=== PATIENT | female | born 1955 | race Caucasian/White ===

== ENCOUNTER 2016-07-25 13:28 | Emergency (ER) | payer OTHER ==
[2016-07-25] MEDS ORDERED: NS 0.9% 1000 ML* 1,000 ML IV ONE (15:40)
[2016-07-25] MEDS ORDERED: Ondansetron INJ* 2 MG/ML VIAL IV ONE ×2 (15:43→18:07)
--- NOTE | 2016-07-25 16:14 | RAD ---
HISTORY: Abdominal pain COMPARISONS: None VIEWS: Frontal supine and upright views of the abdomen. FINDINGS: BOWEL: There is a nonspecific bowel gas pattern, with nondilated small bowel gas noted. CALCULI: There are no abnormal calculi. BONES AND SOFT TISSUES: There is cortical lytic curvature of the spine. Degenerative changes are noted OTHER FINDINGS: The lung bases are clear. There is no subphrenic gas. IMPRESSION: NONSPECIFIC BOWEL GAS PATTERN. NO SUBPHRENIC GAS.
[2016-07-25 16:38] LABS: Hematocrit 42 % (35-47); Hemoglobin 14.5 g/dl (12.0-16.0); Mean Corpuscular HGB Conc 34 g/dl (31-36); Mean Corpuscular Hemoglobin 29 pg (27-31); Mean Corpuscular Volume 86 fL (80-97); Mean Platelet Volume 7 um3 (7.4-10.4); Red Blood Count 4.92 10^6/ul (4.0-5.4); Red Cell Distribution Width 13 % (10.5-15); White Blood Count 11.7 10^3/ul (3.5-10.8)
[2016-07-25 16:55] LABS: ALT 62 U/L (7-52); AST 62 U/L (13-39); Albumin 4.1 g/dL (3.2-5.2); Alkaline Phosphatase 89 U/L (34-104); Amylase 38 U/L (29-103); Anion Gap 12 mmol/L (2-11); BUN/Creatinine Ratio 35.5 (8-20); Blood Urea Nitrogen 33 mg/dL (6-24); C Reactive Protein < 1.00 mg/L (< 5.00); CO2 Carbon Dioxide 23 mmol/L (22-32); Calcium 9.6 mg/dL (8.6-10.3); Chloride 104 mmol/L (101-111); Creatine Kinase 69 U/L (10-223); EGFR African American 78.8 (>60); EGFR Non-African American 61.3 (>60); Globulin 2.9 g/dL (2-4); Glucose 100 mg/dL (70-100); Lipase 46 U/L (11.0-82.0); Potassium 3.8 mmol/L (3.5-5.0); Sodium 139 mmol/L (133-145)
[2016-07-25 18:11] LABS: Urine Bacteria Absent (Absent); Urine Bilirubin Negative (Negative); Urine Glucose Negative (Negative); Urine Nitrite Negative (Negative)
--- NOTE | 2016-07-25 18:17 | ED ---
Enzo Ochoa Janilya, scribed for Dmitry Hicks MD on 07/25/16 at 1532 . GI/ HPI - HPI Summary HPI Summary: A 61 y/o female came in to [facility] presenting w/ a gradual onset of constant nausea and vomiting starting 3 days ago. She also reports intermittent abd pain. She hasn't been able to keep anything down, so she has not eaten or drunk anything. There is also watery diarrhea. Pt reports chills, but no fever. Pt denies CP, SOB. Pt recently found out that her mother has Alzheimer's and has been stressed and been drinking. Pt has been sober for a year previously. PMHx antidepressants, anti-anxiety. - History of Current Complaint Chief Complaint: EDGeneral Time Seen by Provider: 07/25/16 15:29 Stated Complaint: FEELING DEHYDRATED Hx Obtained From: Patient Onset/Duration: Started Days Ago, Atraumatic, Still Present Timing: Constant, Lasting Days Severity: Moderate Current Severity: Moderate Pain Intensity: 0 Location of Pain: Diffuse Associated Signs and Symptoms: Positive: Nausea, Vomiting, Diarrhea, Chills, Abdominal Pain. Negative: Chest Pain Aggravating Factor(s): Nothing Alleviating Factor(s): Nothing - Allergy/Home Medications Allergies/Adverse Reactions: Allergies Allergy/AdvReac Type Severity Reaction Status Date / Time No Known Allergies Allergy Verified 07/25/16 16:25 PMH/Surg Hx/FS Hx/Imm Hx Previously Healthy: Yes EENT History: Denies: Hx Deafness Psychiatric History: Reports: Hx Anxiety, Hx Depression - Surgical History Surgery Procedure, Year, and Place: PLASTIC SURGERY FACE. Infectious Disease History: No Infectious Disease History: Denies: Traveled Outside the [place] in Last 30 Days - Family History Known Family History: Negative: Cardiac Disease, Hypertension, Diabetes - Social History Alcohol Use: None Substance Use Type: Reports: None Smoking Status (MU): Never Smoked Tobacco Review of Systems Positive: Chills. Negative: Fever Negative: Chest Pain Negative: Shortness Of Breath Positive: Abdominal Pain, Vomiting, Diarrhea, Nausea All Other Systems Reviewed And Are Negative: Yes Physical Exam - Summary Physical Exam Summary: VITAL SIGNS: Reviewed. GENERAL: Patient is a well developed and nourished female who is lying comfortable in the stretcher. Patient is not in any acute respiratory distress. HEAD AND FACE: Normocephalic and atraumatic. EYES: PERRLA, EOMI x 2, No injected conjunctiva. EARS: Hearing grossly intact. Ear canals and tympanic membranes are WNL. MOUTH: Oropharynx within normal limits. NECK: Supple, trachea is midline, no adenopathy, no JVD. CHEST: Symmetric, no tenderness at palpation LUNGS: Clear to auscultation bilaterally. No wheezing or crackles. CVS: RRR,, S1 and S2 present, no murmurs or gallops appreciated. ABDOMEN: Soft, non-tender. No signs of distention. Positive bowel sounds. No rebound no guarding, and no masses palpated. No abdominal bruit or pulsations. EXTREMITIES: FROM in all major joints, no edema, no cyanosis or clubbing. NEURO: Alert and oriented x 3. No acute neurological deficits. Speech is normal. SKIN: Dry and warm Triage Information Reviewed: Yes Vital Signs On Initial Exam: Initial Vitals Temp Pulse Resp BP Pulse Ox 98.0 F 88 17 148/83 100 07/25/16 13:32 07/25/16 13:32 07/25/16 13:32 07/25/16 13:32 07/25/16 13:32 Vital Signs Reviewed: Yes - [place] Coma Scale Coma Scale Total: 15 Diagnostics - Vital Signs Vital Signs Temp Pulse Resp BP Pulse Ox 07/25/16 15:11 100.1 F 73 16 137/74 86 07/25/16 15:05 81 94 07/25/16 15:03 137/74 07/25/16 13:32 98.0 F 88 17 148/83 100 - Laboratory Result Diagrams: 07/25/16 16:27 07/25/16 16:27 Lab Statement: Any lab studies that have been ordered have been reviewed, and results considered in the medical decision making process. - Radiology abd xray Xray Interpretation: No Acute Changes - IMPRESSION: NONSPECIFIC BOWEL GAS PATTERN. NO SUBPHRENIC GAS. Radiology Interpretation Completed By: Radiologist - EKG 1612 Cardiac Rate: NL - 64 bpm EKG Rhythm: Sinus Rhythm ST Segment: Normal - no ST elevation GIGU Course/Dx - Course Assessment/Plan: A 61 y/o female came in to [facility] presenting w/ a gradual onset of constant nausea and vomiting starting 3 days ago. She also reports intermittent abd pain. She hasn't been able to keep anything down, so she has not eaten or drunk anything. There is also watery diarrhea. Pt reports chills, but no fever. Pt denies CP, SOB. Blood work wnl except for wbc 11.7, increased LFTs, UA is contaminated. In the ED course she was given IVF and Zofran for the nausea and vomiting. Her symptoms have improved. X ray shows no obstruction. She was given a PO challenge and she had no nausea and vomiting. She will be discharged home with f/u of PMD>. I discussed all the findings and test results with the patient. Patient was instructed to return to the emergency room immediately if any of the symptoms return or worsens. They were explained the possibility of an early abdominal pathology which was not detected at this time despite the physical exam and testing. They understand and agree. Abdominal exam before discharge: Soft, NT. No signs of distention. BS present. No rebound no guarding, and no masses palpated. Patient is alert and oriented and hemodynamically stable. Patient is to follow up with primary care physician in the next 2 to 3 days. Patient agree and understands. Pt recently found out that her mother has Alzheimer's and has been stressed and been drinking. Pt has been sober for a year previously. PMHx antidepressants, anti-anxiety. abd xray IMPRESSION: NONSPECIFIC BOWEL GAS PATTERN. NO SUBPHRENIC GAS. EKG is NSR w/ 64 bpm. - Diagnoses Differential Diagnoses - Female: Gastritis, Gerd, Urinary Tract Infection, Vomiting Provider Diagnoses: Nausea & vomiting, Diarrhea Discharge - Discharge Plan Condition: Stable Disposition: HOME Prescriptions: Ondansetron ODT TAB* [Zofran 4 MG Odt TAB*] 4 mg PO Q6H PRN #10 tab.odt PRN Reason: Vomiting Patient Education Materials: Acute Nausea and Vomiting (ED), Acute Diarrhea (ED ) Referrals: Lissette Pettit MD [Primary Care Provider] - 2 Days The documentation as recorded by the Enzo olson Janilya accurately reflects the service I personally performed and the decisions made by me, Dmitry Hicks MD.
[2016-07-25 18:22] VITALS: BP 121/70
== END 2016-07-25 18:35 | disposition home or self-care (01) ==
LOC: ED 13:28
DX: R11.2 Nausea with vomiting, unspecified (principal); R19.7 Diarrhea, unspecified; E86.0 Dehydration
CPT/HCPCS: 36415; 74020; 80053; 81003; 81015; 82150; 82550; 83690; 83880; 84484; 85025; 86140; 87086; 93005; 96361; 96374; 96376; 99282; J2405

== ENCOUNTER 2016-09-22 18:24 | Inpatient (IN) | payer OTHER ==
[2016-09-22 19:11] LABS: Urine Bacteria Absent (Absent); Urine Bilirubin Negative (Negative); Urine Glucose Negative (Negative); Urine Nitrite Negative (Negative)
[2016-09-22 19:37] LABS: Benzodiazepine Urine Screen None Detected (None Detect)
[2016-09-22 19:47] LABS: Hematocrit 40 % (35-47); Hemoglobin 13.6 g/dl (12.0-16.0); Mean Corpuscular HGB Conc 34 g/dl (31-36); Mean Corpuscular Hemoglobin 30 pg (27-31); Mean Corpuscular Volume 88 fL (80-97); Mean Platelet Volume 7 um3 (7.4-10.4); Red Blood Count 4.53 10^6/ul (4.0-5.4); Red Cell Distribution Width 13 % (10.5-15); White Blood Count 8.2 10^3/ul (3.5-10.8)
[2016-09-22 20:10] LABS: ALT 17 U/L (7-52); AST 22 U/L (13-39); Albumin 4.3 g/dL (3.2-5.2); Alkaline Phosphatase 84 U/L (34-104); Anion Gap 13 mmol/L (2-11); BUN/Creatinine Ratio 18.6 (8-20); Blood Urea Nitrogen 16 mg/dL (6-24); CO2 Carbon Dioxide 20 mmol/L (22-32); Calcium 9.2 mg/dL (8.6-10.3); Chloride 104 mmol/L (101-111); EGFR African American 86.3 (>60); EGFR Non-African American 67.1 (>60); Globulin 2.7 g/dL (2-4); Glucose 91 mg/dL (70-100); Sodium 137 mmol/L (133-145)
[2016-09-22 20:31] LABS: Acetaminophen < 15 mcg/mL; Alcohol 237 mg/dL (<10); Salicylate < 2.50 mg/dL (<30)
[2016-09-22 20:34] LABS: TSH (Thyroid Stimulating Horm) 0.78 mcIU/mL (0.34-5.60)
--- NOTE | 2016-09-22 22:43 | ED ---
Yandy Ochoa Edward, scribed for Giacomo Delaney MD on 09/22/16 at 1907 . Psychiatric Complaint - HPI Summary HPI Summary: 61 y/o female brought in by police for 945 presents to ED c/o depression and EtOH abuse (unspecified amount). Patient has acute on chronic depression and daily thoughts of hurting herself. Patient states daughter recently moved away from her in pursuit of a PhD. PMHx depression and alcoholism (30+ years). Patient takes "lots of medications". - History Of Current Complaint Chief Complaint: EDMentalHealth Time Seen by Provider: 09/22/16 18:39 Hx Obtained From: Patient Onset/Duration: Gradual Onset, Still Present Timing: Constant Character: Depressed Has Suicidal: Reports: Thoughts - Constant thoughts of hurting herself - Allergies/Home Medications Allergies/Adverse Reactions: Allergies Allergy/AdvReac Type Severity Reaction Status Date / Time No Known Allergies Allergy Verified 09/22/16 19:02 PMH/Surg Hx/FS Hx/Imm Hx Previously Healthy: No Endocrine/Hematology History: Reports: Other Endocrine/Hematological Disorders - slight increased LFTS Cardiovascular History: Reports: Hx Angina, Hx Valvular Heart Disease - mitral valve prolapse Respiratory History: Reports: Hx Chronic Obstructive Pulmonary Disease (COPD) GI History: Reports: Other GI Disorders - swallowing difficulties Musculoskeletal History: Reports: Hx Back Problems, Hx Fibromyalgia, Hx Scoliosis, Other Musculoskeletal History - neuropathy in feet Sensory History: Reports: Hx Contacts or Glasses Denies: Hx Deafness Opthamlomology History: Reports: Hx Contacts or Glasses Neurological History: Reports: Other Neuro Impairments/Disorders - dizziness, head injury Psychiatric History: Reports: Hx Anxiety, Hx Depression, Hx Substance Abuse - Battling alcoholism for over 30 years - Surgical History Surgery Procedure, Year, and Place: PLASTIC SURGERY FACE, surgery for fractured skull. mass removed from breast Infectious Disease History: Denies: Traveled Outside the [place] in Last 30 Days - Family History Known Family History: Negative: Cardiac Disease, Hypertension, Diabetes - Social History Occupation: Employed Full-time - Self-employed health aide Lives: Alone Alcohol Use: Daily Hx Substance Use: No Substance Use Type: Reports: None Hx Tobacco Use: Yes Smoking Status (MU): Former Smoker Review of Systems Constitutional: Negative Eyes: Negative ENT: Negative Cardiovascular: Negative Respiratory: Negative Gastrointestinal: Negative Genitourinary: Negative Musculoskeletal: Negative Skin: Negative Neurological: Negative Psychological: Other - pos: SI Positive: Depressed All Other Systems Reviewed And Are Negative: Yes Physical Exam Triage Information Reviewed: Yes Vital Signs On Initial Exam: Initial Vitals Temp Pulse Resp BP Pulse Ox 97.1 F 101 16 134/89 94 09/22/16 18:32 09/22/16 18:32 09/22/16 18:32 09/22/16 18:32 09/22/16 18:32 Vital Signs Reviewed: Yes Appearance: Positive: Well-Appearing, No Pain Distress Skin: Positive: Warm, Skin Color Reflects Adequate Perfusion, Dry Head/Face: Positive: Normal Head/Face Inspection Eyes: Positive: Normal ENT: Positive: Normal ENT inspection Neck: Positive: Supple, Nontender Respiratory/Lung Sounds: Positive: Clear to Auscultation, Breath Sounds Present Cardiovascular: Positive: RRR Abdomen Description: Positive: Nontender, Soft Bowel Sounds: Positive: Present Musculoskeletal: Positive: Normal Neurological: Positive: Normal Psychiatric: Positive: Normal Diagnostics - Vital Signs Vital Signs Temp Pulse Resp BP Pulse Ox 09/22/16 18:32 97.1 F 101 16 134/89 94 - Laboratory Lab Results: Lab Results 09/22/16 09/22/16 09/22/16 Range/Units 19:00 19:00 19:34 WBC 8.2 (3.5-10.8) 10^3/ul RBC 4.53 (4.0-5.4) 10^6/ul Hgb 13.6 (12.0-16.0) g/dl Hct 40 (35-47) % MCV 88 (80-97) fL MCH 30 (27-31) pg MCHC 34 (31-36) g/dl RDW 13 (10.5-15) % Plt Count 262 (150-450) 10^3/ul MPV 7 L (7.4-10.4) um3 Neut % (Auto) 55.9 (38-83) % Lymph % (Auto) 35.7 (25-47) % [place] % (Auto) 6.9 (1-9) % Eos % (Auto) 0.6 (0-6) % Baso % (Auto) 0.9 (0-2) % Absolute Neuts (auto) 4.6 (1.5-7.7) 10^3/ul Absolute Lymphs (auto) 2.9 (1.0-4.8) 10^3/ul Absolute Monos (auto) 0.6 (0-0.8) 10^3/ul Absolute Eos (auto) 0 (0-0.6) 10^3/ul Absolute Basos (auto) 0.1 (0-0.2) 10^3/ul Absolute Nucleated RBC 0.01 10^3/ul Nucleated RBC % 0.1 Sodium (133-145) mmol/L Potassium (3.5-5.0) mmol/L Chloride (101-111) mmol/L Carbon Dioxide (22-32) mmol/L Anion Gap (2-11) mmol/L BUN (6-24) mg/dL Creatinine (0.51-0.95) mg/dL Est GFR ( Amer) (>60) Est GFR (Non-Af Amer) (>60) BUN/Creatinine Ratio (8-20) Glucose (70-100) mg/dL Calcium (8.6-10.3) mg/dL Total Bilirubin (0.2-1.0) mg/dL AST (13-39) U/L ALT (7-52) U/L Alkaline Phosphatase (34-104) U/L Total Protein (6.4-8.9) g/dL Albumin (3.2-5.2) g/dL Globulin (2-4) g/dL Albumin/Globulin Ratio (1-3) TSH (0.34-5.60) mcIU/mL Urine Color Straw Urine Appearance Clear Urine pH 5.0 (5-9) Ur Specific [place] 1.005 L (1.010-1.030) Urine Protein Negative (Negative) Urine Ketones Negative (Negative) Urine Blood Negative (Negative) Urine Nitrate Negative (Negative) Urine Bilirubin Negative (Negative) Urine Urobilinogen Negative (Negative) Ur Leukocyte Esterase Trace H (Negative) Urine WBC (Auto) Trace(0-5/hpf) (Absent) Urine RBC (Auto) Absent (Absent) Ur Squamous Epith Cells Present H (Absent) Urine Bacteria Absent (Absent) Urine Glucose Negative (Negative) Salicylates (<30) mg/dL Urine Opiates Screen None detected (None Detect) Acetaminophen mcg/mL Ur Barbiturates Screen None detected (None Detect) Ur Phencyclidine Scrn None detected (None Detect) Ur Amphetamines Screen None detected (None Detect) U Benzodiazepines Scrn None detected (None Detect) Urine Cocaine Screen None detected (None Detect) U Cannabinoids Screen None detected (None Detect) Serum Alcohol (<10) mg/dL 09/22/16 Range/Units 19:34 WBC (3.5-10.8) 10^3/ul RBC (4.0-5.4) 10^6/ul Hgb (12.0-16.0) g/dl Hct (35-47) % MCV (80-97) fL MCH (27-31) pg MCHC (31-36) g/dl RDW (10.5-15) % Plt Count (150-450) 10^3/ul MPV (7.4-10.4) um3 Neut % (Auto) (38-83) % Lymph % (Auto) (25-47) % [place] % (Auto) (1-9) % Eos % (Auto) (0-6) % Baso % (Auto) (0-2) % Absolute Neuts (auto) (1.5-7.7) 10^3/ul Absolute Lymphs (auto) (1.0-4.8) 10^3/ul Absolute Monos (auto) (0-0.8) 10^3/ul Absolute Eos (auto) (0-0.6) 10^3/ul Absolute Basos (auto) (0-0.2) 10^3/ul Absolute Nucleated RBC 10^3/ul Nucleated RBC % Sodium 137 (133-145) mmol/L Potassium 3.0 L (3.5-5.0) mmol/L Chloride 104 (101-111) mmol/L Carbon Dioxide 20 L (22-32) mmol/L Anion Gap 13 H (2-11) mmol/L BUN 16 (6-24) mg/dL Creatinine 0.86 (0.51-0.95) mg/dL Est GFR ( Amer) 86.3 (>60) Est GFR (Non-Af Amer) 67.1 (>60) BUN/Creatinine Ratio 18.6 (8-20) Glucose 91 (70-100) mg/dL Calcium 9.2 (8.6-10.3) mg/dL Total Bilirubin 0.60 (0.2-1.0) mg/dL AST 22 (13-39) U/L ALT 17 (7-52) U/L Alkaline Phosphatase 84 (34-104) U/L Total Protein 7.0 (6.4-8.9) g/dL Albumin 4.3 (3.2-5.2) g/dL Globulin 2.7 (2-4) g/dL Albumin/Globulin Ratio 1.6 (1-3) TSH 0.78 (0.34-5.60) mcIU/mL Urine Color Urine Appearance Urine pH (5-9) Ur Specific [place] (1.010-1.030) Urine Protein (Negative) Urine Ketones (Negative) Urine Blood (Negative) Urine Nitrate (Negative) Urine Bilirubin (Negative) Urine Urobilinogen (Negative) Ur Leukocyte Esterase (Negative) Urine WBC (Auto) (Absent) Urine RBC (Auto) (Absent) Ur Squamous Epith Cells (Absent) Urine Bacteria (Absent) Urine Glucose (Negative) Salicylates < 2.50 (<30) mg/dL Urine Opiates Screen (None Detect) Acetaminophen < 15 mcg/mL Ur Barbiturates Screen (None Detect) Ur Phencyclidine Scrn (None Detect) Ur Amphetamines Screen (None Detect) U Benzodiazepines Scrn (None Detect) Urine Cocaine Screen (None Detect) U Cannabinoids Screen (None Detect) Serum Alcohol 237 H (<10) mg/dL Result Diagrams: 09/22/16 19:34 09/22/16 19:34 Lab Statement: Any lab studies that have been ordered have been reviewed, and results considered in the medical decision making process. Course/Dx - Course Course Of Treatment: Ronel Chen was drinking tonight and came in to the ED saying she wanted to kill herself. She is sobering up now and awaiting a MHE. - Differential Dx/Clinical Impression Provider Diagnosis: Alcohol intoxication, Depression - Physician Notifications Discussed Care Of Patient With: Dr. Atkinson Discharge - Discharge Plan Condition: Stable Disposition: OTHER Discharge Disposition Comment: change of shift Referrals: Lissette Pettit MD [Primary Care Provider] - The documentation as recorded by the Yandy olson Edward accurately reflects the service I personally performed and the decisions made by me, Giacomo Delaney MD.
[2016-09-23] MEDS ORDERED: Acetaminophen TAB* 325 MG PO PRN (05:59)
[2016-09-23] MEDS ORDERED: Al Hydrox/Mg Hydrox/Simet LIQ* 30 ML UDC PO PRN (05:59)
[2016-09-23] MEDS ORDERED: chlorproMAZINE TAB* 50 MG Q6H PRN AGITATION PO (05:59)
[2016-09-23] MEDS ORDERED: Pantoprazole TAB (NF) 20 MG TAB PO SCH (09:00)
[2016-09-23] MEDS ORDERED: Pantoprazole TAB (NF) 40 MG TAB PO SCH (09:00)
[2016-09-23] MEDS: Gabapentin CAP(*) 300 MG PO SCH ×3 (11:46→20:04)
[2016-09-23] MEDS: Vitamin THERAPEUTIC TAB PO SCH (11:46)
[2016-09-23] MEDS: lamoTRIgine TAB(*) 100 MG PO SCH (11:46)
[2016-09-23] MEDS: hydrOXYzine HCL TAB* 50 MG PO SCH ×2 (11:47→20:05)
[2016-09-23] MEDS: BuPROPion XL* 300 MG TAB.XL PO SCH (12:28)
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
[2016-09-23] MEDS ORDERED: PTO: Pantoprazole TAB (NF) 20 MG TAB PO SCH (18:23)
[2016-09-23] MEDS: traZODone TAB* 50 MG TAB PO SCH (20:05)
[2016-09-23] MEDS: Topiramate TAB(*) 100 MG PO SCH (20:05)
[2016-09-23] MEDS: Diphenoxylat/Atrop 2.5-0.025M* 1 TAB PO PRN (20:06)
[2016-09-23] MEDS: PTO: Pantoprazole TAB (NF) 20 MG TAB PO SCH (20:06)
[2016-09-23] MEDS ORDERED: Topiramate TAB(*) 100 MG PO SCH (21:00)
[2016-09-23] MEDS ORDERED: Potassium Chlor TAB* 10 MEQ TAB.ER PO ONE (21:04)
[2016-09-24 07:51] LABS: BUN/Creatinine Ratio 33.7 (8-20); EGFR African American 89.9 (>60); EGFR Non-African American 69.9 (>60); Potassium 3.7 mmol/L (3.5-5.0)
[2016-09-24] MEDS: Vitamin THERAPEUTIC TAB PO SCH (09:00)
[2016-09-24] MEDS: lamoTRIgine TAB(*) 100 MG PO SCH (09:00)
[2016-09-24] MEDS: hydrOXYzine HCL TAB* 50 MG PO SCH ×2 (09:00→20:18)
[2016-09-24] MEDS: BuPROPion XL* 300 MG TAB.XL PO SCH (09:01)
[2016-09-24] MEDS: Gabapentin CAP(*) 300 MG PO SCH ×3 (09:01→20:18)
[2016-09-24] MEDS: PTO: Pantoprazole TAB (NF) 20 MG TAB PO SCH ×3 (09:02→20:20)
[2016-09-24] MEDS: Diphenoxylat/Atrop 2.5-0.025M* 1 TAB PO PRN (09:05)
--- NOTE | 2016-09-24 13:06 | PN ---
MHU: Group Therapy Note - Service Type Service Type: [id number] Group Psychotherapy - Cognitive Behavioral Group Therapy ( CBT):Patient was attentive and participatory in CBT programming this morning, and remained in good behavioral control. Patient expressed positive insights regarding relevant treatment interventions and goals.
--- NOTE | 2016-09-24 13:42 | PN ---
Subjective - Subjective Service Type: 66842 Hosp care 15 min low complexity Subjective: Patient reports her mood as "depressed". She is calm cooperative and engaged in the interview. Patient noted to have attended all groups since admission and has been visible but isolative in the milieu. Patient initiates the interview discussing what she journaled last night. Patient reports over the last 5 years being aware of 2 other distinct personalities that at times overwhelm her own. She describes a young woman who she reports as "fearless", "strong", "defiant", but also "self- destructive". Patient stated, this personality when in control have "vast gifts". Patient describes another distinct personality which she describes is a "child", who is "terrified". She reports behaviors of this personality are primarily being balling up, "huddled" for days in a row, mute. Patient's affect noted to be full and expressive. She denies SI/HI and AH/VH. She reports feeling safe here on the unit. Patient is open to inpatient rehab for alcohol as alcohol has played a role in most of her episodes of SI, and her suicide attempts. Objective - Appearance Appearance: Thin Framed Dysmorphic Features: No Hygiene: Normal Grooming: Well Kept - Behavior Psychomotor Activities: Normal Exhibits Abnormal Movement: Yes - Attitude and Relatedness Attitude and Relatedness: Cooperative Eye Contact: Good - Speech Quality: Unpressured Latencies: Normal Quantity: Appropriate - Mood Patient's Decription of Mood: "depressed" - Affect Observed Affect: Good - Thought Process Patient's Thought Process: Coherent Thought Content: No Passive Wish, No Suicidal Planning, No Homicidal Ideation, No Paranoid Ideation - Sensorium Experiencing Hallucinations: No, Sensorium is Clear Type of Hallucinations: Visual: No, Auditory: No, Command: No - Level of Consciousness Level of Consciousness: Alert Orientation: Yes Intact, Yes Orientated to Time, Yes Orientated to Place, Yes Orientated to Person - Impulse Control Impulse Control: Intact - Insight and Judgement Insight and Judgement: Fair - Group Participation Particating in Group Activities: Yes - Medication Management Medication Management Adherence: Yes Assessment - Assessment Merits Inpatient Hospitalization: For Immediate Safety, For Stabilization Inpatient DSM-IV Dx: 1. Bipolar 2 d/o, MRE depressed. 2. Unspecified PD, B traits. 3. Alcohol use d/o, severe. 4. PTSD by history Clinical Impression: 61yo female with recent stressor of not being able to see daughter before she leaves the country has triggered episode of worsening depressive symptoms associated with SI, no plan. Patient has re-focused on hx of poor relations with her children and the period of time she lost custody of them. Patient has relapsed on alcohol after a period of sobriety. She had been med and MH appt compliant. She is amenable to med modification and open to inpatient alcohol rehab once stabilized. Plan - Plan Treatment Plan: Name: DORINDA NOE Birthdate: 1955 [id number] PLAN: ------ 1. Continue admission to [facility] for safety and symptom mx. 2. Potassium re-check - wnl. 3. Hep C - NEG 4. Continue Lomotil PRN for reported recent diarrhea. 5. Patient gives informed consent to start Prozac 20mg po qhs for mood. 6. MMPI ordered. 7. Patient requests pelvic exam as its due and out of concern for recent abd pain/distention. 8. Continue Wellbutrin XL 300mg po qam for depressive symptoms. 9. Continue Lamictal 200mg po daily for mood stabilization. 10. Continue Gabapentin 600mg po TID for anxiety. 11. Continue Topamax 100mg po daily for alcohol cravings / mood stabilization. 12. Continue Vistaril 50mg po BID for anxiety. 13. Continue Trazodone 50mg po qhs for insomnia. 14. Continue compiling collateral information from family, [facility]), PCP( Dr.Catherine Pettit), and inpatient records from most most recent psychiatric hospitalization([facility]) 15. Patient to participate in milieu activities and groups. Medications: Current Medications Acetaminophen (Tylenol Tab*) 650 mg PO Q4H PRN PRN Reason: PAIN or TEMP > 101 F Al Hydrox/Mg Hydrox/Simethicone (Maalox Plus*) 30 ml PO Q4H PRN PRN Reason: INDIGESTION Bupropion HCl (Bupropion Xl*) 300 mg PO DAILY [facility] Last Admin: 09/24/16 09:01 Dose: 300 mg Chlorpromazine HCl (Thorazine Tab*) 50 mg PO Q6H PRN PRN Reason: AGITATION Diphenhydramine HCl (Benadryl Po*) 50 mg PO Q6H PRN PRN Reason: AGITATION/INSOMNIA Diphenoxylate HCl/Atropine (Lomotil Tab*) 1 tab PO BID PRN PRN Reason: DIARRHEA Last Admin: 09/24/16 09:05 Dose: 1 tab Gabapentin (Neurontin Cap(*)) 600 mg PO TID [facility] Last Admin: 09/24/16 09:01 Dose: 600 mg Hydroxyzine HCl (Atarax Tab*) 50 mg PO BID [facility] Last Admin: 09/24/16 09:00 Dose: 50 mg Lamotrigine (Lamictal Tab(*)) 200 mg PO DAILY [facility] Last Admin: 09/24/16 09:00 Dose: 200 mg Multivitamins (Theragran Tab*) 1 tab PO DAILY [facility] Last Admin: 09/24/16 09:00 Dose: 1 tab Naproxen (Naprosyn Tab*) 500 mg PO BEDTIME PRN PRN Reason: PAIN Pantoprazole Sodium (Protonix Tab (Nf)) 20 mg PO 0900,2100 [facility] Last Admin: 09/24/16 09:12 Dose: 20 mg Topiramate (Topamax(*)) 100 mg PO 2099 [facility] Last Admin: 09/23/16 20:05 Dose: 100 mg Trazodone HCl (Desyrel Tab*) 50 mg PO BEDTIME [facility] Last Admin: 09/23/16 20:05 Dose: 50 mg - Discharge Plan Discharge Plan: Drug/Alcohol Rehab Outpatient Program: [facility]
[2016-09-24] MEDS: traZODone TAB* 50 MG TAB PO SCH (20:18)
[2016-09-24] MEDS: Topiramate TAB(*) 100 MG PO SCH (20:18)
[2016-09-25] MEDS: PTO: Pantoprazole TAB (NF) 20 MG TAB PO SCH ×2 (08:40→20:18)
[2016-09-25] MEDS: lamoTRIgine TAB(*) 100 MG PO SCH (08:41)
[2016-09-25] MEDS: BuPROPion XL* 300 MG TAB.XL PO SCH (08:42)
[2016-09-25] MEDS: hydrOXYzine HCL TAB* 50 MG PO SCH ×2 (08:42→20:18)
[2016-09-25] MEDS: FLUoxetine CAP* 20 MG PO SCH (08:42)
[2016-09-25] MEDS: Vitamin THERAPEUTIC TAB PO SCH (08:42)
[2016-09-25] MEDS: Gabapentin CAP(*) 300 MG PO SCH ×3 (08:42→20:18)
--- NOTE | 2016-09-25 19:19 | PN ---
Subjective - Subjective Service Type: 24219 Hosp care 15 min low complexity Subjective: Patient visible in the milieu, noted to be more social with peers and noted to be engaged, participating well in groups. Patient is bright in affect through interview. She reports boost in mood and attributes it to learning from groups, feeling more motivated, and feeling safe here on the unit. Patient reporting increased insight into her need to be sober. Patient reports she is experiencing alcohol cravings currently. Naltrexone and Vivitrol discussed. Patient will consider these over the weekend. Patient reports no med s/e's. She denies SI/HI and AH/VH. She is thankful for staff's therapeutic listening. Objective - Appearance Appearance: Thin Framed Dysmorphic Features: No Hygiene: Normal Grooming: Well Kept - Behavior Psychomotor Activities: Normal Exhibits Abnormal Movement: No - Attitude and Relatedness Attitude and Relatedness: Cooperative Eye Contact: Good - Speech Quality: Unpressured Latencies: Normal Quantity: Appropriate - Mood Patient's Decription of Mood: "Good" - Affect Observed Affect: Good Affect Consistent with: Euthymia - Thought Process Patient's Thought Process: Coherent Thought Content: No Passive Wish, No Suicidal Planning, No Homicidal Ideation, No Paranoid Ideation - Sensorium Experiencing Hallucinations: No, Sensorium is Clear Type of Hallucinations: Visual: No, Auditory: No, Command: No - Level of Consciousness Level of Consciousness: Alert Orientation: Yes Intact, Yes Orientated to Time, Yes Orientated to Place, Yes Orientated to Person - Impulse Control Impulse Control: Intact - Insight and Judgement Insight and Judgement: Fair - Group Participation Particating in Group Activities: Yes - Medication Management Medication Management Adherence: Yes Assessment - Assessment Inpatient DSM-IV Dx: 1. Bipolar 2 d/o, MRE depressed. 2. Unspecified PD, B traits. 3. Alcohol use d/o, severe. 4. PTSD by history Clinical Impression: 61yo female with recent stressor of not being able to see daughter before she leaves the country has triggered episode of worsening depressive symptoms associated with SI, no plan. Patient has re-focused on hx of poor relations with her children and the period of time she lost custody of them. Patient has relapsed on alcohol after a period of sobriety. She had been med and MH appt compliant. She is amenable to med modification and open to inpatient alcohol rehab once stabilized. Plan - Plan Treatment Plan: Name: DORINDA NOE Birthdate: 1955 [id number] PLAN: ------ 1. Continue admission to [facility] for safety and symptom mx. 2. Hospitalist consulted for patient reported hemoptysis. Patient does report recent ENT eval. 3. Hep C - NEG 4. Patient reports [facility] appt on Wednesday, will attempt to transport patient there and back for spinal injections appt. 5. Patient reporting current alcohol cravings. Naltrexone and Vivitrol discussed. Patient reports she will consider over this weekend. 6. MMPI ordered. 7. Patient pelvic exam to be done as an outpt. 8. Continue Wellbutrin XL 300mg po qam and Prozac 20mg po qhs for depressive symptoms. 9. Continue Lamictal 200mg po daily for mood stabilization. 10. Continue Gabapentin 600mg po TID for anxiety. 11. Continue Topamax 100mg po daily for alcohol cravings / mood stabilization. 12. Continue Vistaril 50mg po BID for anxiety. 13. Continue Trazodone 50mg po qhs for insomnia. 14. Continue compiling collateral information from family, [facility]), PCP( Dr.Catherine Pettit), and inpatient records from most most recent psychiatric hospitalization([facility]) 15. Patient to participate in milieu activities and groups. Medications: Current Medications Acetaminophen (Tylenol Tab*) 650 mg PO Q4H PRN PRN Reason: PAIN or TEMP > 101 F Al Hydrox/Mg Hydrox/Simethicone (Maalox Plus*) 30 ml PO Q4H PRN PRN Reason: INDIGESTION Bupropion HCl (Bupropion Xl*) 300 mg PO DAILY REPLACED BY [facility] Last Admin: 09/25/16 08:42 Dose: 300 mg Chlorpromazine HCl (Thorazine Tab*) 50 mg PO Q6H PRN PRN Reason: AGITATION Diphenhydramine HCl (Benadryl Po*) 50 mg PO Q6H PRN PRN Reason: AGITATION/INSOMNIA Diphenoxylate HCl/Atropine (Lomotil Tab*) 1 tab PO BID PRN PRN Reason: DIARRHEA Last Admin: 09/24/16 09:05 Dose: 1 tab Fluoxetine HCl (Prozac Cap*) 20 mg PO DAILY REPLACED BY [facility] Last Admin: 09/25/16 08:42 Dose: 20 mg Gabapentin (Neurontin Cap(*)) 600 mg PO TID REPLACED BY [facility] Last Admin: 09/25/16 13:27 Dose: 600 mg Hydroxyzine HCl (Atarax Tab*) 50 mg PO BID REPLACED BY [facility] Last Admin: 09/25/16 08:42 Dose: 50 mg Lamotrigine (Lamictal Tab(*)) 200 mg PO DAILY REPLACED BY [facility] Last Admin: 09/25/16 08:41 Dose: 200 mg Multivitamins (Theragran Tab*) 1 tab PO DAILY REPL[facility] BY [facility] Last Admin: 09/25/16 08:42 Dose: 1 tab Naproxen (Naprosyn Tab*) 500 mg PO BEDTIME PRN PRN Reason: PAIN Pantoprazole Sodium (Protonix Tab (Nf)) 20 mg PO 0900,2100 REPLACED BY [facility] Last Admin: 09/25/16 08:40 Dose: 20 mg Topiramate (Topamax(*)) 100 mg PO 2100 REPLACED BY [facility] Last Admin: 09/24/16 20:18 Dose: 100 mg Trazodone HCl (Desyrel Tab*) 50 mg PO BEDTIME REPLACED BY [facility] Last Admin: 09/24/16 20:18 Dose: 50 mg - Discharge Plan Discharge Plan: Drug/Alcohol Rehab Outpatient Program: [facility]
[2016-09-25] MEDS: Topiramate TAB(*) 100 MG PO SCH (20:19)
[2016-09-25] MEDS: traZODone TAB* 50 MG TAB PO SCH (20:19)
[2016-09-25] MEDS: Naproxen TAB* 250 MG PO PRN (20:21)
[2016-09-26] MEDS: Gabapentin CAP(*) 300 MG PO SCH ×3 (08:32→20:09)
[2016-09-26] MEDS: BuPROPion XL* 300 MG TAB.XL PO SCH (08:32)
[2016-09-26] MEDS: FLUoxetine CAP* 20 MG PO SCH (08:33)
[2016-09-26] MEDS: lamoTRIgine TAB(*) 100 MG PO SCH (08:33)
[2016-09-26] MEDS: hydrOXYzine HCL TAB* 50 MG PO SCH ×2 (08:33→20:10)
[2016-09-26] MEDS: Vitamin THERAPEUTIC TAB PO SCH (08:33)
[2016-09-26] MEDS: PTO: Pantoprazole TAB (NF) 20 MG TAB PO SCH ×2 (08:34→20:08)
[2016-09-26] MEDS: Topiramate TAB(*) 100 MG PO SCH (20:09)
[2016-09-26] MEDS: traZODone TAB* 50 MG TAB PO SCH (20:09)
[2016-09-26] MEDS: Naproxen TAB* 250 MG PO PRN (20:10)
[2016-09-27] MEDS: hydrOXYzine HCL TAB* 50 MG PO SCH ×2 (08:32→20:04)
[2016-09-27] MEDS: Vitamin THERAPEUTIC TAB PO SCH (08:32)
[2016-09-27] MEDS: BuPROPion XL* 300 MG TAB.XL PO SCH (08:32)
[2016-09-27] MEDS: Gabapentin CAP(*) 300 MG PO SCH ×3 (08:33→20:04)
[2016-09-27] MEDS: lamoTRIgine TAB(*) 100 MG PO SCH (08:33)
[2016-09-27] MEDS: FLUoxetine CAP* 20 MG PO SCH (08:34)
[2016-09-27] MEDS: PTO: Pantoprazole TAB (NF) 20 MG TAB PO SCH ×2 (08:34→20:03)
--- NOTE | 2016-09-27 11:14 | PN ---
Subjective - Subjective Service Type: 50690 Hosp care 15 min low complexity Subjective: Ronel is seen for weekend coverage and is calm, polite and cooperative with my interview. She indicates that she has resolved to seek inpatient substance abuse rehab for her addiction to alcohol. Her biggest concern at this time is her fear that she may lose her [facility] at [facility]. She denies SI "As long as I'm in here." She is tolerating her medications well and seeks privileges on the unit. Objective - Appearance Appearance: Well Developed/Nourished Dysmorphic Features: No Hygiene: Normal Grooming: Well Kept - Behavior Psychomotor Activities: Normal Exhibits Abnormal Movement: No - Attitude and Relatedness Attitude and Relatedness: Cooperative Eye Contact: Good - Speech Quality: Unpressured Latencies: Normal Quantity: Appropriate - Mood Patient's Decription of Mood: "Good" - Affect Observed Affect: Good Affect Consistent with: Euthymia - Thought Process Patient's Thought Process: Coherent Thought Content: No Passive Wish, No Suicidal Planning, No Homicidal Ideation, No Paranoid Ideation - Sensorium Experiencing Hallucinations: No, Sensorium is Clear Type of Hallucinations: Visual: No, Auditory: No, Command: No - Level of Consciousness Level of Consciousness: Alert Orientation: Yes Intact, Yes Orientated to Time, Yes Orientated to Place, Yes Orientated to Person - Impulse Control Impulse Control: Tenuous - Insight and Judgement Insight and Judgement: Fair - Group Participation Particating in Group Activities: Yes - Medication Management Medication Management Adherence: Yes Assessment - Assessment Merits Inpatient Hospitalization: For Immediate Safety, For Stabilization Inpatient DSM-IV Dx: 1. Bipolar 2 d/o, MRE depressed. 2. Unspecified PD, B traits. 3. Alcohol use d/o, severe. 4. PTSD by history Clinical Impression: 61 y.o. female with a history of affective problems and alcohol abuse who presented to the ED voluntarily seeking admission for worsening depressed mood and passive SI. Plan - Plan Treatment Plan: Name: RONEL NOE Birthdate: 1955 [id number] The patient is tolerating the introduction of fluoxetine well and mood appears to be re-regulating itself here on the unit. She is pending referral to an inpatient substance abuse rehab and is agreeable to this. Continue to treat as an inpatient. Continued Medication Management: Start Medication Medications: Current Medications Acetaminophen (Tylenol Tab*) 650 mg PO Q4H PRN PRN Reason: PAIN or TEMP > 101 F Al Hydrox/Mg Hydrox/Simethicone (Maalox Plus*) 30 ml PO Q4H PRN PRN Reason: INDIGESTION Bupropion HCl (Bupropion Xl*) 300 mg PO DAILY [facility] Last Admin: 09/27/16 08:32 Dose: 300 mg Chlorpromazine HCl (Thorazine Tab*) 50 mg PO Q6H PRN PRN Reason: AGITATION Diphenhydramine HCl (Benadryl Po*) 50 mg PO Q6H PRN PRN Reason: AGITATION/INSOMNIA Diphenoxylate HCl/Atropine (Lomotil Tab*) 1 tab PO BID PRN PRN Reason: DIARRHEA Last Admin: 09/24/16 09:05 Dose: 1 tab Fluoxetine HCl (Prozac Cap*) 20 mg PO DAILY [facility] Last Admin: 09/27/16 08:34 Dose: 20 mg Gabapentin (Neurontin Cap(*)) 600 mg PO TID [facility] Last Admin: 09/27/16 08:33 Dose: 600 mg Hydroxyzine HCl (Atarax Tab*) 50 mg PO BID [facility] Last Admin: 09/27/16 08:32 Dose: 50 mg Lamotrigine (Lamictal Tab(*)) 200 mg PO DAILY [facility] Last Admin: 09/27/16 08:33 Dose: 200 mg Multivitamins (Theragran Tab*) 1 tab PO DAILY [facility] Last Admin: 09/27/16 08:32 Dose: 1 tab Naproxen (Naprosyn Tab*) 500 mg PO BEDTIME PRN PRN Reason: PAIN Last Admin: 09/26/16 20:10 Dose: 500 mg Pantoprazole Sodium (Protonix Tab (Nf)) 20 mg PO 0900,2100 [facility] Last Admin: 09/27/16 08:34 Dose: 20 mg Topiramate (Topamax(*)) 100 mg PO 2100 [facility] Last Admin: 09/26/16 20:09 Dose: 100 mg Trazodone HCl (Desyrel Tab*) 50 mg PO BEDTIME [facility] Last Admin: 09/26/16 20:09 Dose: 50 mg - Discharge Plan Discharge Plan: Inpatient Hospitalization
[2016-09-27] MEDS: traZODone TAB* 50 MG TAB PO SCH (20:04)
[2016-09-27] MEDS: Topiramate TAB(*) 100 MG PO SCH (20:04)
[2016-09-27] MEDS: Naproxen TAB* 250 MG PO PRN (20:05)
[2016-09-28] MEDS: PTO: Pantoprazole TAB (NF) 20 MG TAB PO SCH ×2 (09:02→20:37)
[2016-09-28] MEDS: BuPROPion XL* 300 MG TAB.XL PO SCH (09:02)
[2016-09-28] MEDS: hydrOXYzine HCL TAB* 50 MG PO SCH ×2 (09:20→20:11)
[2016-09-28] MEDS: lamoTRIgine TAB(*) 100 MG PO SCH (09:20)
[2016-09-28] MEDS: FLUoxetine CAP* 20 MG PO SCH (09:20)
[2016-09-28] MEDS: Gabapentin CAP(*) 300 MG PO SCH ×3 (09:22→20:10)
[2016-09-28] MEDS: Vitamin THERAPEUTIC TAB PO SCH (09:23)
--- NOTE | 2016-09-28 13:04 | PN ---
MHU: Group Therapy Note - Service Type Service Type: [id number] Group Psychotherapy - Cognitive Behavioral Group Therapy ( CBT):Patient was attentive and participatory in CBT programming this morning, and remained in good behavioral control. Patient expressed positive insights regarding relevant treatment interventions and goals.
--- NOTE | 2016-09-28 18:59 | PN ---
Subjective - Subjective Service Type: 32405 Hosp care 15 min low complexity Subjective: Patient reports ongoing benefit from her admission. Patient noted to contribute to groups. Patient noted to continue working on therapy reading/journaling in her room. Patient visible in the milieu, social with peers and cooperative with staff. Patient reports ongoing plan to be admitted to an inpatient substance abuse treatment program([facility]), but reports desire to spend time at home before being admitted. Patient educated on staff's concerns with potential relapse while at home. Patient informed of her residential program's 3 strikes rule in regard to policy violations. Patient has relapsed twice since moving to the residence. Patient is in jeopardy of losing her housing with another relapse. Patient informed she has been referred to multiple [facility] programs by SW. She reports bad experiences with some programs in the past and is concerned with hospital policy to [facility]. Patient reports her mood as "leveled off". She has been med compliant and denies med s/e's. She reports good sleep and appetite. She reports decreasing alcohol cravings and is still considering initiation of Naltrexone/Vivitrol. Patient denies SI/ HI and AH/VH. Objective - Appearance Appearance: Well Developed/Nourished Dysmorphic Features: Yes Hygiene: Normal Grooming: Well Kept - Behavior Psychomotor Activities: Normal Exhibits Abnormal Movement: Yes - Attitude and Relatedness Attitude and Relatedness: Cooperative Eye Contact: Good - Speech Quality: Unpressured Latencies: Normal Quantity: Appropriate - Mood Patient's Decription of Mood: "Good" - Affect Observed Affect: Good Affect Consistent with: Euthymia - Thought Process Patient's Thought Process: Coherent Thought Content: No Passive Wish, No Suicidal Planning, No Homicidal Ideation, No Paranoid Ideation - Sensorium Experiencing Hallucinations: No, Sensorium is Clear Type of Hallucinations: Visual: No, Auditory: No, Command: No - Level of Consciousness Level of Consciousness: Alert Orientation: Yes Intact, Yes Orientated to Time, Yes Orientated to Place, Yes Orientated to Person - Impulse Control Impulse Control: Intact - Insight and Judgement Insight and Judgement: Good - Group Participation Particating in Group Activities: Yes - Medication Management Medication Management Adherence: Yes Assessment - Assessment Merits Inpatient Hospitalization: For Immediate Safety, For Stabilization Inpatient DSM-IV Dx: 1. Bipolar 2 d/o, MRE depressed. 2. Unspecified PD, B traits. 3. Alcohol use d/o, severe. 4. PTSD by history Clinical Impression: 61yo female with recent stressor of not being able to see daughter before she leaves the country has triggered episode of worsening depressive symptoms associated with SI, no plan. Patient has re-focused on hx of poor relations with her children and the period of time she lost custody of them. Patient has relapsed on alcohol after a period of sobriety. She had been med and MH appt compliant. She is amenable to med modification and open to inpatient alcohol rehab once stabilized. Plan - Plan Treatment Plan: Name: DORINDA NOE Birthdate: 1955 [id number] PLAN: ------ 1. Continue admission to [facility] for safety and symptom mx. 2. Hospitalist consulted for patient reported hemoptysis. Patient does report recent ENT eval. 3. Hep C - NEG 4. [facility] appt cancelled by clinic reporting policy to reschedule inpatients. 5. Naltrexone and Vivitrol discussed, patient pondering start for reported alcohol cravings. 6. MMPI completed. 7. Patient pelvic exam to be done as an outpt. 8. Continue Wellbutrin XL 300mg po qam and Prozac 20mg po qhs for depressive symptoms. 9. Continue Lamictal 200mg po daily for mood stabilization. 10. Continue Gabapentin 600mg po TID for anxiety. 11. Continue Topamax 100mg po daily for alcohol cravings / mood stabilization. 12. Continue Vistaril 50mg po BID for anxiety. 13. Continue Trazodone 50mg po qhs for insomnia. 14. Continue compiling collateral information from family, [facility]), PCP( Dr.Catherine Pettit), and inpatient records from most most recent psychiatric hospitalization([facility]) 15. Patient to participate in milieu activities and groups. Medications: Current Medications Acetaminophen (Tylenol Tab*) 650 mg PO Q4H PRN PRN Reason: PAIN or TEMP > 101 F Al Hydrox/Mg Hydrox/Simethicone (Maalox Plus*) 30 ml PO Q4H PRN PRN Reason: INDIGESTION Bupropion HCl (Bupropion Xl*) 300 mg PO DAILY YE Last Admin: 09/28/16 09:02 Dose: 300 mg Chlorpromazine HCl (Thorazine Tab*) 50 mg PO Q6H PRN PRN Reason: AGITATION Diphenhydramine HCl (Benadryl Po*) 50 mg PO Q6H PRN PRN Reason: AGITATION/INSOMNIA Diphenoxylate HCl/Atropine (Lomotil Tab*) 1 tab PO BID PRN PRN Reason: DIARRHEA Last Admin: 09/24/16 09:05 Dose: 1 tab Fluoxetine HCl (Prozac Cap*) 20 mg PO DAILY [facility] Last Admin: 09/28/16 09:20 Dose: 20 mg Gabapentin (Neurontin Cap(*)) 600 mg PO TID [facility] Last Admin: 09/28/16 14:08 Dose: 600 mg Hydroxyzine HCl (Atarax Tab*) 50 mg PO BID [facility] Last Admin: 09/28/16 09:20 Dose: 50 mg Lamotrigine (Lamictal Tab(*)) 200 mg PO DAILY [facility] Last Admin: 09/28/16 09:20 Dose: 200 mg Multivitamins (Theragran Tab*) 1 tab PO DAILY [facility] Last Admin: 09/28/16 09:23 Dose: 1 tab Naproxen (Naprosyn Tab*) 500 mg PO BEDTIME PRN PRN Reason: PAIN Last Admin: 09/27/16 20:05 Dose: 500 mg Pantoprazole Sodium (Protonix Tab (Nf)) 20 mg PO 0900,2100 [facility] Last Admin: 09/28/16 09:02 Dose: 20 mg Topiramate (Topamax(*)) 100 mg PO 2100 [facility] Last Admin: 09/27/16 20:04 Dose: 100 mg Trazodone HCl (Desyrel Tab*) 50 mg PO BEDTIME [facility] Last Admin: 09/27/16 20:04 Dose: 50 mg - Discharge Plan Discharge Plan: [facility]
[2016-09-28] MEDS: Topiramate TAB(*) 100 MG PO SCH (20:11)
[2016-09-28] MEDS: traZODone TAB* 50 MG TAB PO SCH (20:11)
[2016-09-28] MEDS: Naproxen TAB* 250 MG PO PRN (20:11)
[2016-09-29] MEDS: BuPROPion XL* 300 MG TAB.XL PO SCH (08:19)
[2016-09-29] MEDS: hydrOXYzine HCL TAB* 50 MG PO SCH ×2 (08:19→20:53)
[2016-09-29] MEDS: lamoTRIgine TAB(*) 100 MG PO SCH (08:19)
[2016-09-29] MEDS: Gabapentin CAP(*) 300 MG PO SCH ×3 (08:19→20:54)
[2016-09-29] MEDS: Vitamin THERAPEUTIC TAB PO SCH (08:19)
[2016-09-29] MEDS: FLUoxetine CAP* 20 MG PO SCH (08:19)
[2016-09-29] MEDS: PTO: Pantoprazole TAB (NF) 20 MG TAB PO SCH ×2 (09:02→20:54)
--- NOTE | 2016-09-29 11:45 | PN ---
MHU: Group Therapy Note - Service Type Service Type: [id number] Group Psychotherapy - Cognitive Behavioral Group Therapy ( CBT):Patient was attentive and participatory in CBT programming this morning, and remained in good behavioral control. Patient expressed positive insights regarding relevant treatment interventions and goals.
--- NOTE | 2016-09-29 18:40 | PN ---
Subjective - Subjective Service Type: 32733 Hosp care 15 min low complexity Subjective: Patient reports ongoing benefit from her hospitalization. She reports learning a good deal from CBT group this morning. She reports her mood as "stable". Patient requests order for computer access to email family regarding her post discharge plans. Patient reports med compliance and denies med s/e's. She reports appetite and sleep are wnl. Patient requested and was provided with reading on Bipolar disorder. She reports ongoing alcohol cravings and gave informed consent to start Naltrexone 50mg po daily for alcohol cravings. Patient continues to report her plan is to began an inpatient alcohol treatment program after discharge. She does report desire to go home for at least one day after discharge, with plan to present for admission to the program the day after. Patient denies SI/HI and AH/VH. Objective - Appearance Appearance: Thin Framed Dysmorphic Features: No Hygiene: Normal Grooming: Fairly Well Kept - Behavior Psychomotor Activities: Normal Exhibits Abnormal Movement: No - Attitude and Relatedness Attitude and Relatedness: Cooperative Eye Contact: Good - Speech Quality: Unpressured Latencies: Normal Quantity: Appropriate - Mood Patient's Decription of Mood: "Okay" - Affect Observed Affect: Fair - Thought Process Patient's Thought Process: Coherent Thought Content: No Passive Wish, No Suicidal Planning, No Homicidal Ideation, No Paranoid Ideation - Sensorium Experiencing Hallucinations: No, Sensorium is Clear Type of Hallucinations: Visual: No, Auditory: No, Command: No - Level of Consciousness Level of Consciousness: Alert Orientation: Yes Intact, Yes Orientated to Time, Yes Orientated to Place, Yes Orientated to Person - Impulse Control Impulse Control: Intact - Insight and Judgement Insight and Judgement: Fair - Group Participation Particating in Group Activities: Yes - Medication Management Medication Management Adherence: Yes Assessment - Assessment Merits Inpatient Hospitalization: For Immediate Safety, For Stabilization Inpatient DSM-IV Dx: 1. Bipolar 2 d/o, MRE depressed. 2. Unspecified PD, B traits. 3. Alcohol use d/o, severe. 4. PTSD by history Clinical Impression: 61yo female with recent stressor of not being able to see daughter before she leaves the country has triggered episode of worsening depressive symptoms associated with SI, no plan. Patient has re-focused on hx of poor relations with her children and the period of time she lost custody of them. Patient has relapsed on alcohol after a period of sobriety. She had been med and MH appt compliant. She is amenable to med modification and open to inpatient alcohol rehab once stabilized. Plan - Plan Treatment Plan: Name: DORINDA NOE Birthdate: 1955 [id number] PLAN: ------ 1. Continue admission to [facility] for safety and symptom mx. 2. Hospitalist consulted for patient reported hemoptysis. Patient does report recent ENT eval. 3. Hep C - NEG 4. [facility] appt cancelled by clinic reporting policy to reschedule inpatients. 5. Start Naltrexone 50mg po qam for alcohol use d/o, cravings. 6. MMPI completed, will forward ot PCP and [facility] providers. 7. Patient pelvic exam to be done as an outpt. 8. Continue Wellbutrin XL 300mg po qam and Prozac 20mg po qhs for depressive symptoms. 9. Continue Lamictal 200mg po daily for mood stabilization. 10. Continue Gabapentin 600mg po TID for anxiety. 11. Continue Topamax 100mg po daily for alcohol cravings / mood stabilization. 12. Continue Vistaril 50mg po BID for anxiety. 13. Continue Trazodone 50mg po qhs for insomnia. 14. Continue compiling collateral information from family, [facility]), PCP( Dr.Catherine Pettit), and inpatient records from most most recent psychiatric hospitalization([facility]) 15. Patient to participate in milieu activities and groups. Medications: Current Medications Acetaminophen (Tylenol Tab*) 650 mg PO Q4H PRN PRN Reason: PAIN or TEMP > 101 F Al Hydrox/Mg Hydrox/Simethicone (Maalox Plus*) 30 ml PO Q4H PRN PRN Reason: INDIGESTION Bupropion HCl (Bupropion Xl*) 300 mg PO DAILY YE Last Admin: 09/29/16 08:19 Dose: 300 mg Chlorpromazine HCl (Thorazine Tab*) 50 mg PO Q6H PRN PRN Reason: AGITATION Diphenhydramine HCl (Benadryl Po*) 50 mg PO Q6H PRN PRN Reason: AGITATION/INSOMNIA Diphenoxylate HCl/Atropine (Lomotil Tab*) 1 tab PO BID PRN PRN Reason: DIARRHEA Last Admin: 09/24/16 09:05 Dose: 1 tab Fluoxetine HCl (Prozac Cap*) 20 mg PO DAILY [facility] Last Admin: 09/29/16 08:19 Dose: 20 mg Gabapentin (Neurontin Cap(*)) 600 mg PO TID [facility] Last Admin: 09/29/16 13:54 Dose: 600 mg Hydroxyzine HCl (Atarax Tab*) 50 mg PO BID [facility] Last Admin: 09/29/16 08:19 Dose: 50 mg Lamotrigine (Lamictal Tab(*)) 200 mg PO DAILY [facility] Last Admin: 09/29/16 08:19 Dose: 200 mg Multivitamins (Theragran Tab*) 1 tab PO DAILY [facility] Last Admin: 09/29/16 08:19 Dose: 1 tab Naltrexone HCl (Naltrexone (Nf)) 50 mg PO DAILY [facility] PRN Reason: Protocol Naproxen (Naprosyn Tab*) 500 mg PO BEDTIME PRN PRN Reason: PAIN Last Admin: 09/28/16 20:11 Dose: 500 mg Omeprazole (Prilosec Cap*) 20 mg PO BID [facility] Pantoprazole Sodium (Protonix Tab (Nf)) 20 mg PO 0900,2100 [facility] Last Admin: 09/29/16 09:02 Dose: Not Given Topiramate (Topamax(*)) 100 mg PO 2100 [facility] Last Admin: 09/28/16 20:11 Dose: 100 mg Trazodone HCl (Desyrel Tab*) 50 mg PO BEDTIME [facility] Last Admin: 09/28/16 20:11 Dose: 50 mg - Discharge Plan Discharge Plan: Drug/Alcohol Rehab Outpatient Program: [facility]
[2016-09-29] MEDS: traZODone TAB* 50 MG TAB PO SCH (20:53)
[2016-09-29] MEDS: Omeprazole CAP* 20 MG PO SCH (20:54)
[2016-09-29] MEDS: Topiramate TAB(*) 100 MG PO SCH (20:54)
[2016-09-30 08:03] VITALS: BP 120/65
[2016-09-30] MEDS: Gabapentin CAP(*) 300 MG PO SCH ×2 (08:53→14:09)
[2016-09-30] MEDS: lamoTRIgine TAB(*) 100 MG PO SCH (08:54)
[2016-09-30] MEDS: BuPROPion XL* 300 MG TAB.XL PO SCH (08:54)
[2016-09-30] MEDS: FLUoxetine CAP* 20 MG PO SCH (08:54)
[2016-09-30] MEDS: Vitamin THERAPEUTIC TAB PO SCH (08:54)
[2016-09-30] MEDS: hydrOXYzine HCL TAB* 50 MG PO SCH (08:55)
[2016-09-30] MEDS: Omeprazole CAP* 20 MG PO SCH (08:55)
[2016-09-30] MEDS: PTO: Pantoprazole TAB (NF) 20 MG TAB PO SCH (08:56)
[2016-09-30] MEDS ORDERED: NALTREXONE 50 MG PO SCH (09:00)
--- NOTE | 2016-09-30 16:18 | DS ---
Subjective - Subjective Subjective: On day of discharge, patient reports her mind in focused on tonight and getting things organized and packed for her set admission to [facility] inpatient substance abuse treatment program on 10/01/16. Patient reports no med s/e. No issues since starting Naltrexone. Patient reported fair sleep and appetite. She denied SI/HI and AH/VH throughout her admission. She reports good benefit from her admission. She reports her mood is stable. Objective - Appearance Appearance: Well Developed/Nourished Dysmorphic Features: No Hygiene: Normal Grooming: Fairly Well Kept - Behavior Psychomotor Activities: Normal Exhibits Abnormal Movement: No - Attitude and Relatedness Attitude and Relatedness: Cooperative Eye Contact: Fair - Speech Quality: Unpressured Latencies: Normal Quantity: Appropriate - Mood Patient's Decription of Mood: "Okay" - Affect Observed Affect: Fair Affect Consistent with: Euthymia - Thought Process Patient's Thought Process: Coherent Thought Content: No Passive Wish, No Suicidal Planning, No Homicidal Ideation, No Paranoid Ideation - Sensorium Experiencing Hallucinations: No, Sensorium is Clear Type of Hallucinations: Visual: No, Auditory: No, Command: No - Level of Consciousness Level of Consciousness: Alert Orientation: Yes Intact, Yes Orientated to Time, Yes Orientated to Place, Yes Orientated to Person - Impulse Control Impulse Control: Intact - Insight and Judgement Insight and Judgement: Fair - Group Participation Particating in Group Activities: Yes - Medication Management Medication Management Adherence: Yes Treatment Course & Assessment Clinical Course & Impression: HOSPITAL COURSE: 61yo female with recent stressor of not being able to see daughter before she leaves the country has triggered episode of worsening depressive symptoms associated with SI, no plan. Patient has relapsed on alcohol after a 1 year period of sobriety. She has been med compliant. Patient re-started on home psychotropic regimen. Prozac 20mg po daily added to assist in mood modification. She recognized her need to do inpatient alcohol rehab. Patient has started Naltrexone 50mg po daily for alcohol cravings. She discharged home per her request. Patient to present to [facility] 10/01/16. PERTINENT LABS: Laboratory Tests 09/22/16 09/22/16 09/22/16 19:00 19:00 19:34 WBC 8.2 RBC 4.53 Hgb 13.6 Hct 40 MCV 88 MCH 30 MCHC 34 RDW 13 Plt Count 262 MPV 7 L Neut % (Auto) 55.9 Lymph % (Auto) 35.7 [place] % (Auto) 6.9 Eos % (Auto) 0.6 Baso % (Auto) 0.9 Absolute Neuts (auto) 4.6 Absolute Lymphs (auto) 2.9 Absolute Monos (auto) 0.6 Absolute Eos (auto) 0 Absolute Basos (auto) 0.1 Absolute Nucleated RBC 0.01 Nucleated RBC % 0.1 Sodium Potassium Chloride Carbon Dioxide Anion Gap BUN Creatinine Est GFR ( Amer) Est GFR (Non-Af Amer) BUN/Creatinine Ratio Glucose Calcium Total Bilirubin AST ALT Alkaline Phosphatase Total Protein Albumin Globulin Albumin/Globulin Ratio TSH Urine Color Straw Urine Appearance Clear Urine pH 5.0 Ur Specific [place] 1.005 L Urine Protein Negative Urine Ketones Negative Urine Blood Negative Urine Nitrate Negative Urine Bilirubin Negative Urine Urobilinogen Negative Ur Leukocyte Esterase Trace H Urine WBC (Auto) Trace(0-5/hpf) Urine RBC (Auto) Absent Ur Squamous Epith Cells Present H Urine Bacteria Absent Urine Glucose Negative Salicylates Urine Opiates Screen None detected Acetaminophen Ur Barbiturates Screen None detected Ur Phencyclidine Scrn None detected Ur Amphetamines Screen None detected U Benzodiazepines Scrn None detected Urine Cocaine Screen None detected U Cannabinoids Screen None detected Serum Alcohol Hepatitis C Antibody 09/22/16 09/24/16 09/24/16 19:34 07:14 07:14 WBC RBC Hgb Hct MCV MCH MCHC RDW Plt Count MPV Neut % (Auto) Lymph % (Auto) [place] % (Auto) Eos % (Auto) Baso % (Auto) Absolute Neuts (auto) Absolute Lymphs (auto) Absolute Monos (auto) Absolute Eos (auto) Absolute Basos (auto) Absolute Nucleated RBC Nucleated RBC % Sodium 137 138 Potassium 3.0 L 3.7 Chloride 104 106 Carbon Dioxide 20 L 26 Anion Gap 13 H 6 BUN 16 28 H Creatinine 0.86 0.83 Est GFR ( Amer) 86.3 89.9 Est GFR (Non-Af Amer) 67.1 69.9 BUN/Creatinine Ratio 18.6 33.7 H Glucose 91 101 H Calcium 9.2 9.0 Total Bilirubin 0.60 AST 22 ALT 17 Alkaline Phosphatase 84 Total Protein 7.0 Albumin 4.3 Globulin 2.7 Albumin/Globulin Ratio 1.6 TSH 0.78 Urine Color Urine Appearance Urine pH Ur Specific [place] Urine Protein Urine Ketones Urine Blood Urine Nitrate Urine Bilirubin Urine Urobilinogen Ur Leukocyte Esterase Urine WBC (Auto) Urine RBC (Auto) Ur Squamous Epith Cells Urine Bacteria Urine Glucose Salicylates < 2.50 Urine Opiates Screen Acetaminophen < 15 Ur Barbiturates Screen Ur Phencyclidine Scrn Ur Amphetamines Screen U Benzodiazepines Scrn Urine Cocaine Screen U Cannabinoids Screen Serum Alcohol 237 H Hepatitis C Antibody Nonreactive Discharge Meds: Bupropion HCl (Bupropion Xl*) 300 mg PO DAILY YE Fluoxetine HCl (Prozac Cap*) 20 mg PO DAILY YE Gabapentin (Neurontin Cap(*)) 600 mg PO TID YE Lamotrigine (Lamictal Tab(*)) 200 mg PO DAILY YE Naltrexone HCl (Naltrexone (Nf)) 50 mg PO DAILY YE Naproxen (Naprosyn Tab*) 500 mg PO BEDTIME PRN Omeprazole (Prilosec Cap*) 20 mg PO BID YE Topiramate (Topamax(*)) 100 mg PO 2100 YE Trazodone HCl (Desyrel Tab*) 50 mg PO BEDTIME [facility] Consultants: none Follow-Up: Patient will discharge from [facility], bed to bed to [facility] rehab. F/U appts to be scheduled once discharged from [facility]. Clear for Discharge: Adequate Clinical Respons, Acceptable Safety Profile Inpatient DSM-IV Dx: 1. Bipolar 2 d/o, MRE depressed. 2. Unspecified PD, B traits. 3. Alcohol use d/o, severe. 4. PTSD by history Discharge Planning - Discharge Planning Discharge Plan: Outpatient Follow Up Outpatient Program: [facility] Recommendations for Continuing Care: Substance Abuse Counseling Medications: Current Medications Bupropion HCl (Bupropion Xl*) 300 mg PO DAILY YE Fluoxetine HCl (Prozac Cap*) 20 mg PO DAILY YE Gabapentin (Neurontin Cap(*)) 600 mg PO TID YE Lamotrigine (Lamictal Tab(*)) 200 mg PO DAILY YE Naltrexone HCl (Naltrexone (Nf)) 50 mg PO DAILY YE Naproxen (Naprosyn Tab*) 500 mg PO BEDTIME PRN Omeprazole (Prilosec Cap*) 20 mg PO BID YE Topiramate (Topamax(*)) 100 mg PO 2100 YE Trazodone HCl (Desyrel Tab*) 50 mg PO BEDTIME YE Discharge Planning: Prescriptions provided for discharge [x] Yes [] No Follow up care details as per social work arrangements. Patient response to discharge plan: [] eager for discharge [x] agreeable with discharge plan [] ambivalent about discharge [] disagrees with discharge today
--- NOTE | 2016-10-01 14:48 | CONS ---
PSYCHOLOGICAL REPORT: DATE OF CONSULT: 09/29/16 REASON FOR REFERRAL: Ronel was referred for psychological testing to assist with diagnostic impression with concerns regarding characterological vulnerabilities consistent with borderline or histrionic personality qualities. TEST ADMINISTERED: Ronel completed the [place] Multiphasic Personality Inventory - 2 (MMPI-2). She was given feedback regarding test results in individual conversation. BEHAVIORAL OBSERVATIONS: Ronel is a 61-year-old female who presented with depression with worsening depressive symptomatology accompanied by passive suicidal ideation. Ronel denied having had formulated a plan but described suicidal thoughts as encroaching in recent weeks and being exacerbated acutely when she was unable to see her daughter who apparently is on her way to [facility] to begin PHD program. Ronel describes historical difficulties with recurrences of both manic symptoms often and then followed by what she referred to as "depressive crashes." She describes feeling as though she was gifted when experiencing manic thoughts describing having a very rich internal life at times. However, she describes lifelong cyclical patterns of having such manic or hypomanic experiences and then struggling with depression thereafter. Ronel initially presented as very depressed while on the unit, although she did consistently attend programming. Her ability to engage in spontaneous conversation improved during her stay as did her attention to hygiene. Ronel was well related to staff and peers and did not have any behavioral problems during her hospitalization and she was able to engage productively in various forms of programing and treatment. She was compliant with medication and expressed intentions of compliance with outpatient care postdischarge. 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 She also has vocational experience as a hairdresser. Ronel describes what sounds to be some dissociative identity disorder traits describing having 3 different personas. She clearly articulates having a very regressive alter ego that is quite childlike and often very scared. She was less descriptive in her accounts of the other 2 personas but she very clearly describes recurrent difficulties that seem to be persisting experiences for her. Ronel also identifies as relapse in alcohol use is problematic. As she appears to value her current living arrangement, she expressed intentions of complying with recommendations regarding residential and outpatient treatment for alcohol abuse. TEST RESULTS: Ronel provides an extremely duress profile on this administration of the MMPI-2 having elevated all 3 of the emotional stressor validity indicators, with the first 2 of these scales rising to a T score of 98. She subsequently elevates 8 out of 10 clinical scales including having an extremely low score on the masculine-feminine scale (T=33). She elevates to neurotic triad to an approximate T score of 90 in all 3 scales with even higher elevations occurring on the anger indices, where she attains T scores between 98 and 102 respectively on the psychopathic deviate and paranoia scales. She has done a very low score on the aforementioned M-F scales with a hypomania scale score of 80. Her score on the hypomania scale seems to support her account of historical periods where she experiences hypomanic difficulties which at present is also coupled with the depressive presentation. Persons with similar profiles are described as classic "gull wing" profile where there is a great deal of emotional duress characterized by high level of anger. All persons who score in the low range on the masculine-feminine scale are often described as being very helpless and hopeless and tend towards having passive reactions to their stressors and interpersonal duress. They may identify strongly in the victimization role and they tend towards establishing the hostile-dependent relational style at times with family or therapist. IMPRESSIONS AND RECOMMENDATIONS: Concerns regarding [place] II proclivities are supported in the testing context with Ronel and revealed in her accounts of having what sounds to be some dissociative identity disorder traits. She clearly articulates having 3 alters which influence her decision making and experiences. These symptoms may be better explored in the outpatient setting whether it is a more longstanding inconsistent therapeutic relationship. Ronel impresses as having made significant progress with compliance to medications as well as attending programing. Concerns regarding family duress are evident with concerns about feelings of emotional abandonment. Continuing therapy should rule out other borderline personality traits if present, as well as emphasizing the importance of compliance with medications in regards to recurrence with bipolar 2 type symptomatology. [id number]/[facility] #: [id number] MTDD
== END 2016-09-30 17:45 | disposition home or self-care (01) | DRG 753 ==
LOC: ED 18:24 → BSU 09-23 08:24
PROVIDERS: ADMIT Internal Medicine; ATTEND Psychiatry & Neurology Psychiatry
DX: F31.30 Bipolar disorder, current episode depressed, mild or moderate severity, unspecified (principal); R45.851 Suicidal ideations; F10.10 Alcohol abuse, uncomplicated; Y90.7 Blood alcohol level of 200-239 mg/100 ml; F43.10 Post-traumatic stress disorder, unspecified; Z62.810 Personal history of physical and sexual abuse in childhood; M79.7 Fibromyalgia; M50.30 Other cervical disc degeneration, unspecified cervical region; M51.36 Other intervertebral disc degeneration, lumbar region; Z81.1 Family history of alcohol abuse and dependence; Z81.8 Family history of other mental and behavioral disorders
CPT/HCPCS: 36415; 80048; 80053; 80307; 80320; 80329; 81003; 81015; 84443; 85025; 86803; 87086; 90853; 96102; 99222; 99231; 99238; A9270-GY; G0480

== ENCOUNTER 2016-11-11 10:00 | Day surgery (SDC) | payer OTHER ==
[~2016-11-11 10:00] MED LIST: Buffered Lidocaine 0.9% SYRIN* 5 ML/SYR SYRINGE INTRADERM ONE; Famotidine IV* 10 MG/ML 2 ML (20 mg) IV ONE
[2016-11-11] MEDS ORDERED: Famotidine IV* 10 MG/ML 2 ML (20 mg) ONE (10:08)
[2016-11-11] MEDS ORDERED: Buffered Lidocaine 0.9% SYRIN* 5 ML/SYR SYRINGE ONE (10:08)
[2016-11-11] MEDS ORDERED: Dexamethasone IV* 4 MG/ML 1 ML (4 MG) ONE (11:22)
[2016-11-11] MEDS ORDERED: Lidocaine 2% PF * 5 ML VIAL ONE (11:22)
[2016-11-11] MEDS ORDERED: Propofol* 10 MG/ML 20 ML BTL IV PUSH ONE (11:22)
[2016-11-11] MEDS ORDERED: Ondansetron INJ* 2 MG/ML VIAL ONE (11:22)
[2016-11-11] MEDS ORDERED: Midazolam* 1 MG/ML 5 ML VIAL (5 MG) ONE (11:23)
[2016-11-11] MEDS ORDERED: Lidocaine 1.5% EPI 1:200,000* 30 ML SDV ONE (11:43)
[2016-11-11] MEDS ORDERED: Oxymetazoline 0.05% NASAL SPR* 15 ML BTL ONE (11:43)
[2016-11-11] MEDS ORDERED: Acetaminophen IV 1GM/100ML * 100 ML IVPB ONE (11:55)
[2016-11-11] MEDS ORDERED: Ondansetron INJ* 2 MG/ML VIAL IV PRN (11:55)
[2016-11-11] MEDS ORDERED: fentaNYL* 50 MCG/ML 2 ML VIAL (100 MCG VIAL) ONE (12:01)
[2016-11-11] MEDS ORDERED: KETAMINE HCL* 50 MG/ML 10 ML VIAL ONE (12:11)
[2016-11-11] MEDS ORDERED: Acetaminophen IV 1GM/100ML * 100 ML ONE (13:57)
[2016-11-11 14:32] VITALS: BP 141/86
--- NOTE | 2016-11-12 05:34 | OP ---
DATE OF OPERATION: 11/11/16 - [facility] DATE OF : 55 SURGEON: Yoan Andres M.D. ANESTHSIOLOGIST: Jamal Galeano MD ANESTHESIA: General PRE-OP DIAGNOSIS: Deviated nasal septum, collapsed nasal valve and hypertrophied turbinates. POST-OP DIAGNOSIS: Deviated nasal septum, collapsed nasal valve and hypertrophied turbinates. OPERATIVE PROCEDURE: Septoplasty, bilateral nasal alar cameron grafts and submucosal resection of inferior turbinates. BRIEF HISTORY: This 61-year-old female suffered a traumatic injury to the nose , had a markedly deviated septum, but she also had some inherently weakening of the nasal alar region with nasal valve collapse. She would use the Baldwin maneuver to breathe. DESCRIPTION OF PROCEDURE: The patient was taken to the operating room, general anesthetic given, patient intubated with LMA. Nose was decongested with Afrin placed pledgets and subsequently 2% lidocaine with epinephrine was infiltrated into the mucosa of the septum into the alar area into the inferior turbinates. Left hemitransfixion incision created, mucoperichondrial flap was elevated. Quadrangular cartilage was disarticulated along the vomer-ethmoidal complex. Portion of the crest was removed and the inferior portion of the cartilage was removed by preserving adequate L-strut and in fact more than adequate L-strut. This cartilage was to be harvested for the alar cameron graft. Portion of the septal spur posteriorly along the vomer-ethmoidal complex was removed. The hemitransfixion incision was closed. I created a tunnel on both sides bilaterally by making small incision in the intracartilaginous skin. Subsequently blunt dissection with scissors was carried out to create a pocket between the upper lateral cartilage and the lower lateral cartilage. We took the portions of the cartilage which was adequate enough a create a cameron and placed it in the pocket. The suture was placed to close the incision. This was done symmetrically on both sides. Then we turned our attention to the inferior turbinates, small incision in inferior turbinate mucosal incision was made and submucosal elevation was carried out subsequently a portion of the bone was removed. Cauterization was carried out and hemostasis obtained. The patient has nasal dressing, patient awakened, sent to recovery in stable condition. Instrument and sponge count correct. Blood loss minimal. [id number]/[facility] #: [id number] INDY
== END 2016-11-11 14:55 | disposition home or self-care (01) ==
LOC: OR 10:00
PROVIDERS: ATTEND Otolaryngology
DX: J34.2 Deviated nasal septum (principal); J34.3 Hypertrophy of nasal turbinates; Z87.891 Personal history of nicotine dependence; J44.9 Chronic obstructive pulmonary disease, unspecified; I34.1 Nonrheumatic mitral (valve) prolapse; I25.10 Atherosclerotic heart disease of native coronary artery without angina pectoris
CPT/HCPCS: A9270-GY; J1100; J2250; J2405; J2704; J3010

== ENCOUNTER 2018-01-11 18:11 | Emergency (ER) | payer OTHER ==
[2018-01-11 18:46] VITALS: BP 142/82
--- NOTE | 2018-01-11 19:05 | ED ---
Psychiatric Complaint - HPI Summary HPI Summary: This patient is a 62 year old F presenting to [facility] with a concern for a bug infestation that she believes it is in her house and under her skin. She saw her PCP and a wrecking crane engine operator, they sent her to a mental health agency because they believe she is crazy. She believes there are bugs everywhere. She is digging at her skin and believes she is pulling them out from under her skin. She states they are in her eyes and in her mouth. She states she has been infested for three weeks. She denies recent travel and skin issues. She brought a pill bottle with these bugs but upon inspection they bugs are what appear to be pieces of lint and are not alive. The patient rates the pain 0/10 in severity. - History Of Current Complaint Chief Complaint: EDGeneral Time Seen by Provider: 01/11/18 18:31 Hx Obtained From: Patient Onset/Duration: Lasting Weeks - 3, Still Present Severity Initially: Moderate Severity Currently: Moderate Character: Frustrated Associated Signs And Symptoms: Positive: Negative - fever Has Suicidal: Denies: Thoughts, With A Plan Has Homicidal: Denies: Thoughts, With A Plan - Allergies/Home Medications Allergies/Adverse Reactions: Allergies Allergy/AdvReac Type Severity Reaction Status Date / Time No Known Allergies Allergy Verified 01/11/18 18:21 PMH/Surg Hx/FS Hx/Imm Hx Endocrine/Hematology History: Reports: Other Endocrine/Hematological Disorders - slight increased LFTS Cardiovascular History: Reports: Hx Angina - NONE SINCE 2013, Hx Valvular Heart Disease - mitral valve prolapse Respiratory History: Reports: Hx Chronic Obstructive Pulmonary Disease (COPD) GI History: Reports: Hx Gastroesophageal Reflux Disease - ON DAILY MEDS, Other GI Disorders - swallowing difficulties Musculoskeletal History: Reports: Hx Back Problems, Hx Fibromyalgia, Hx Scoliosis, Hx Tendonitis - ANKLES, MINIMAL PROBLEMS SINCE STOPPED EXERCISING, Other Musculoskeletal History - neuropathy in feet Comment Only: Hx Arthritis - FEET & SPINE Sensory History: Reports: Hx Contacts or Glasses - READING Denies: Hx Deafness, Hx Hearing Aid Opthamlomology History: Reports: Hx Contacts or Glasses - READING Neurological History: Reports: Other Neuro Impairments/Disorders - dizziness, head injury- PAIN CLINIC PT Psychiatric History: Reports: Hx Anxiety - ON MEDS, Hx Depression - ON MEDS, Hx Suicide Attempt, Hx Substance Abuse - Battling alcoholism for over 30 years Denies: Hx Eating Disorder, Hx of Violent Episodes Against Others - Surgical History Surgery Procedure, Year, and Place: PLASTIC SURGERY FACE, surgery for fractured skull. mass removed from breast Hx Anesthesia Reactions: No Infectious Disease History: No Infectious Disease History: Denies: Traveled Outside the [place] in Last 30 Days - Family History Known Family History: Negative: Cardiac Disease, Hypertension, Diabetes - Social History Alcohol Use: None Alcohol Amount: beer daily Hx Substance Use: No Substance Use Type: Reports: None Hx Tobacco Use: Yes Smoking Status (MU): Never Smoked Tobacco Type: Cigars Amount Used/How Often: 1PPD 10 YEARS Length of Time of Smoking/Using Tobacco: 10 YEARS Have You Smoked in the Last Year: No Review of Systems Negative: Fever Positive: Other - dig singh where she has scratched Positive: Other - bugs everywhere All Other Systems Reviewed And Are Negative: Yes Physical Exam - Summary Physical Exam Summary: Appearance: Well-appearing, Well-nourished, lying in bed comfortably Skin: neurotic excoriations Eyes: sclera anicteric, no conjunctival pallor ENT: mucous membranes moist, pharynx appears normal Neck: Supple, nontender Respiratory: Clear to auscultation, no signs of respiratory distress Cardiovascular: Normal S1, S2. No murmurs. Normal distal pulses in tibial and radial bilaterally. Abdomen: Soft, nontender, normal active bowel sounds present Musculoskeletal: Normal, Strength/ROM Intact Neurological: A&Ox3, awake and alert, mentation is normal, speech is fluent and appropriate Psychiatric: affect is normal, does not appear anxious or depressed Triage Information Reviewed: Yes Vital Signs On Initial Exam: Initial Vitals Temp Pulse Resp BP Pulse Ox 98.3 F 65 17 142/86 100 01/11/18 18:17 01/11/18 18:17 01/11/18 18:17 01/11/18 18:17 01/11/18 18:17 Vital Signs Reviewed: Yes Diagnostics - Vital Signs Vital Signs Temp Pulse Resp BP Pulse Ox 01/11/18 18:45 98.3 F 65 17 142/82 100 01/11/18 18:17 98.3 F 65 17 142/86 100 - Laboratory Lab Statement: Any lab studies that have been ordered have been reviewed, and results considered in the medical decision making process. Course/Dx - Course Assessment/Plan: This patient is a 62 year old F presenting to [facility] with a concern for a bug infestation that she believes it is in her house and under her skin. She saw her PCP and a wrecking crane engine operator, they sent her to a mental health agency because they believe she is crazy. She believes there are bugs everywhere. She is digging at her skin and believes she is pulling them out from under her skin. She states they are in her eyes and in her mouth. She states she has been infested for three weeks. She denies recent travel and skin issues. She brought a pill bottle with these bugs but upon inspection they bugs are what appear to be pieces of lint and are not alive. The patient rates the pain 0/10 in severity. I suspect delusional parasitoid. The patient was referred to a wrecking crane engine operator if she would like a second opinion. - Differential Dx/Clinical Impression Provider Diagnosis: Tripbostephen's delusional parasitosis Discharge - Sign-Out/Discharge Documenting (check all that apply): Patient Departure - Discharge Plan Condition: Good Disposition: HOME Patient Education Materials: Acute Rash (ED) Referrals: Lissette Pettit MD [Primary Care Provider] - Additional Instructions: I'm sorry that I cannot help you with this problem. A wrecking crane engine operator is better positioned to arrive at a diagnosis. I can tell you that there is no sign that this is some type of parasite or insect burrowing under your skin. - Attestation Statements Document Initiated by Scribe: Yes Documenting Scribe: Rico Saleem Provider For Whom Elizabeth is Documenting (Include Credential): Giacomo Leach MD Scribe Attestation: I, Rico Saleem, scribed for Giacomo Leach MD on 01/11/18 at 1859.
== END 2018-01-11 18:45 | disposition home or self-care (01) ==
LOC: ED 18:11
DX: F22 Delusional disorders (principal); F41.9 Anxiety disorder, unspecified; F32.9 Major depressive disorder, single episode, unspecified; K21.9 Gastro-esophageal reflux disease without esophagitis; Z87.891 Personal history of nicotine dependence; Z79.899 Other long term (current) drug therapy
CPT/HCPCS: 99281

== ENCOUNTER 2018-03-19 13:57 | Emergency (ER) | payer MEDICARE, OTHER ==
[2018-03-19 15:06] LABS: ABS Basophils 0.1 10^3/ul (0-0.2); ABS Eosinophils 0.1 10^3/ul (0-0.6); ABS Lymphocytes 1.9 10^3/ul (1.0-4.8); ABS Monocytes 0.5 10^3/ul (0-0.8); ABS Neutrophils 3.5 10^3/ul (1.5-7.7); ABS Nucleated RBC 0 10^3/ul; Eosinophil % 1.8 %; Hematocrit 39 % (35-47); Hemoglobin 13.2 g/dl (12.0-16.0); Lymphocyte % 30.3 %; Mean Corpuscular HGB Conc 34 g/dl (31-36); Mean Corpuscular Hemoglobin 30 pg (27-31); Mean Corpuscular Volume 89 fL (80-97); Mean Platelet Volume 7.2 fL (7.4-10.4); Nucleated Red Blood Cells % 0; Platelet Count 285 10^3/ul (150-450); Red Blood Count 4.38 10^6/ul (4.00-5.40); Red Cell Distribution Width 13 % (10.5-15); White Blood Count 6.1 10^3/ul (3.5-10.8)
[2018-03-19 15:22] LABS: EGFR Non-African American 57.3 (>60)
[2018-03-19 15:56] LABS: Urine Appearance Clear; Urine Blood Negative (Negative); Urine Color Straw; Urine Ketones Negative (Negative); Urine Protein Negative (Negative); Urine Specific Gravity 1.003 (1.010-1.030); Urine Urobilinogen Negative (Negative)
--- NOTE | 2018-03-19 16:36 | ED ---
Complex/Multi-Sys Presentation - HPI Summary HPI Summary: Pt. is a 63 y.o female who presents to the ER with complaints of feeling insects crawling on skin x 4 months. Pt. has been seen in the ER, by PCP, dermatology and urgent care without improvement. Pt. has a history of alcohol abuse, PTSD, bipolar. She states she is compliant with her medications and sees a therapist on a regular basis. Pt. lives alone and her close friend is with her today in the ER. Pt. states she has had an medical nurse come to her house but she reports they did not find anything. Pt. states she is constantly washing her clothes and lines. Pt. states she is sleeping on a plastic mattress. Pt. states she finds "bugs" beside her when she wakes up and she pulls them out of her skin. She notes she is constantly scratching herself and has numerous wounds to chest from scratching. Pt. seen GEOPHYSICAL LABORATORY [facility] and agreed to come to ED for MHE. Sxs are moderate in severity. No current modifying factors. Pt. otherwise denies complaints. She notes occasional suicidal thoughts And depression without plan. - History Of Current Complaint Chief Complaint: EDMentalHealth Time Seen by Provider: 03/19/18 14:11 Hx Obtained From: Patient, Family/Pile Driver - Allergies/Home Medications Allergies/Adverse Reactions: Allergies Allergy/AdvReac Type Severity Reaction Status Date / Time No Known Allergies Allergy Verified 03/19/18 14:06 PMH/Surg Hx/FS Hx/Imm Hx Previously Healthy: Yes Endocrine/Hematology History: Reports: Other Endocrine/Hematological Disorders - slight increased LFTS Cardiovascular History: Reports: Hx Angina - NONE SINCE 2013, Hx Valvular Heart Disease - mitral valve prolapse Respiratory History: Reports: Hx Chronic Obstructive Pulmonary Disease (COPD) GI History: Reports: Hx Gastroesophageal Reflux Disease - ON DAILY MEDS, Other GI Disorders - swallowing difficulties Musculoskeletal History: Reports: Hx Back Problems, Hx Fibromyalgia, Hx Scoliosis, Hx Tendonitis - ANKLES, MINIMAL PROBLEMS SINCE STOPPED EXERCISING, Other Musculoskeletal History - neuropathy in feet Comment Only: Hx Arthritis - FEET & SPINE Sensory History: Reports: Hx Contacts or Glasses - READING Denies: Hx Deafness, Hx Hearing Aid Opthamlomology History: Reports: Hx Contacts or Glasses - READING Neurological History: Reports: Other Neuro Impairments/Disorders - dizziness, head injury- PAIN CLINIC PT Psychiatric History: Reports: Hx Anxiety - ON MEDS, Hx Depression - ON MEDS, Hx Suicide Attempt, Hx Substance Abuse - Battling alcoholism for over 30 years Denies: Hx Eating Disorder, Hx of Violent Episodes Against Others - Surgical History Surgery Procedure, Year, and Place: PLASTIC SURGERY FACE, surgery for fractured skull. mass removed from breast Hx Anesthesia Reactions: No Infectious Disease History: No Infectious Disease History: Denies: Traveled Outside the [place] in Last 30 Days - Family History Known Family History: Negative: Cardiac Disease, Hypertension, Diabetes - Social History Occupation: Unemployed Lives: Alone Alcohol Use: None Alcohol Amount: hx etoh abuse, 2 years sobriety Hx Substance Use: No Substance Use Type: Reports: None Hx Tobacco Use: Yes Smoking Status (MU): Never Smoked Tobacco Type: Cigars Amount Used/How Often: 1PPD 10 YEARS Length of Time of Smoking/Using Tobacco: 10 YEARS Have You Smoked in the Last Year: No Review of Systems Constitutional: Negative Negative: Fever, Chills Positive: Other - itching and wounds Neurological: Negative Positive: Anxious All Other Systems Reviewed And Are Negative: Yes Physical Exam Triage Information Reviewed: Yes Vital Signs On Initial Exam: Initial Vitals Temp Pulse Resp BP Pulse Ox 98.1 F 75 19 121/71 99 03/19/18 14:02 03/19/18 14:02 03/19/18 14:02 03/19/18 14:02 03/19/18 14:02 Vital Signs Reviewed: Yes Appearance: Positive: Well-Nourished - Pt. sitting on bed, anxsiou, pressured speech. Friend present. Skin: Positive: Other - Numeruos wounds to trunk and back from scratching. No signs of infection. NO drainage, induration or fluctuance. Head/Face: Positive: Normal Head/Face Inspection Eyes: Positive: Normal, EOMI ENT: Positive: Pharynx normal, TMs normal Neck: Positive: Supple, Nontender Respiratory/Lung Sounds: Positive: Clear to Auscultation, Breath Sounds Present Cardiovascular: Positive: Normal, RRR Abdomen Description: Positive: Nontender, Soft Neurological: Positive: Normal, Alert, Oriented to Person Place, Time, CN Intact II-III Psychiatric: Positive: Anxious Diagnostics - Vital Signs Vital Signs Temp Pulse Resp BP Pulse Ox 03/19/18 14:02 98.1 F 75 19 121/71 99 - Laboratory Lab Results: Lab Results 03/19/18 03/19/18 03/19/18 Range/Units 14:49 14:49 15:46 WBC 6.1 (3.5-10.8) 10^3/ul RBC 4.38 (4.00-5.40) 10^6/ul Hgb 13.2 (12.0-16.0) g/dl Hct 39 (35-47) % MCV 89 (80-97) fL MCH 30 (27-31) pg MCHC 34 (31-36) g/dl RDW 13 (10.5-15) % Plt Count 285 (150-450) 10^3/ul MPV 7.2 L (7.4-10.4) fL Neut % (Auto) 58.1 % Lymph % (Auto) 30.3 % [place] % (Auto) 8.9 % Eos % (Auto) 1.8 % Baso % (Auto) 0.9 % Absolute Neuts (auto) 3.5 (1.5-7.7) 10^3/ul Absolute Lymphs (auto) 1.9 (1.0-4.8) 10^3/ul Absolute Monos (auto) 0.5 (0-0.8) 10^3/ul Absolute Eos (auto) 0.1 (0-0.6) 10^3/ul Absolute Basos (auto) 0.1 (0-0.2) 10^3/ul Absolute Nucleated RBC 0 10^3/ul Nucleated RBC % 0 Sodium 136 (135-145) mmol/L Potassium 4.4 (3.5-5.0) mmol/L Chloride 102 (101-111) mmol/L Carbon Dioxide 28 (22-32) mmol/L Anion Gap 6 (2-11) mmol/L BUN 29 H (6-24) mg/dL Creatinine 0.98 H (0.51-0.95) mg/dL Est GFR ( Amer) 69.4 (>60) Est GFR (Non-Af Amer) 57.3 (>60) BUN/Creatinine Ratio 29.6 H (8-20) Glucose 104 H (70-100) mg/dL Calcium 9.8 (8.6-10.3) mg/dL Total Bilirubin 0.40 (0.2-1.0) mg/dL AST 48 H (13-39) U/L ALT 33 (7-52) U/L Alkaline Phosphatase 122 H (34-104) U/L Total Protein 7.1 (6.4-8.9) g/dL Albumin 4.4 (3.2-5.2) g/dL Globulin 2.7 (2-4) g/dL Albumin/Globulin Ratio 1.6 (1-3) TSH 2.64 (0.34-5.60) mcIU/mL Urine Color Straw Urine Appearance Clear Urine pH 7.0 (5-9) Ur Specific [place] 1.003 L (1.010-1.030) Urine Protein Negative (Negative) Urine Ketones Negative (Negative) Urine Blood Negative (Negative) Urine Nitrate Negative (Negative) Urine Bilirubin Negative (Negative) Urine Urobilinogen Negative (Negative) Ur Leukocyte Esterase Negative (Negative) Urine Glucose Negative (Negative) Salicylates < 2.50 (<30) mg/dL Urine Opiates Screen (None Detect) Acetaminophen < 15 mcg/mL Ur Barbiturates Screen (None Detect) Ur Phencyclidine Scrn (None Detect) Ur Amphetamines Screen (None Detect) U Benzodiazepines Scrn (None Detect) Urine Cocaine Screen (None Detect) U Cannabinoids Screen (None Detect) Serum Alcohol < 10 (<10) mg/dL 03/19/18 Range/Units 15:46 WBC (3.5-10.8) 10^3/ul RBC (4.00-5.40) 10^6/ul Hgb (12.0-16.0) g/dl Hct (35-47) % MCV (80-97) fL MCH (27-31) pg MCHC (31-36) g/dl RDW (10.5-15) % Plt Count (150-450) 10^3/ul MPV (7.4-10.4) fL Neut % (Auto) % Lymph % (Auto) % [place] % (Auto) % Eos % (Auto) % Baso % (Auto) % Absolute Neuts (auto) (1.5-7.7) 10^3/ul Absolute Lymphs (auto) (1.0-4.8) 10^3/ul Absolute Monos (auto) (0-0.8) 10^3/ul Absolute Eos (auto) (0-0.6) 10^3/ul Absolute Basos (auto) (0-0.2) 10^3/ul Absolute Nucleated RBC 10^3/ul Nucleated RBC % Sodium (135-145) mmol/L Potassium (3.5-5.0) mmol/L Chloride (101-111) mmol/L Carbon Dioxide (22-32) mmol/L Anion Gap (2-11) mmol/L BUN (6-24) mg/dL Creatinine (0.51-0.95) mg/dL Est GFR ( Amer) (>60) Est GFR (Non-Af Amer) (>60) BUN/Creatinine Ratio (8-20) Glucose (70-100) mg/dL Calcium (8.6-10.3) mg/dL Total Bilirubin (0.2-1.0) mg/dL AST (13-39) U/L ALT (7-52) U/L Alkaline Phosphatase (34-104) U/L Total Protein (6.4-8.9) g/dL Albumin (3.2-5.2) g/dL Globulin (2-4) g/dL Albumin/Globulin Ratio (1-3) TSH (0.34-5.60) mcIU/mL Urine Color Urine Appearance Urine pH (5-9) Ur Specific [place] (1.010-1.030) Urine Protein (Negative) Urine Ketones (Negative) Urine Blood (Negative) Urine Nitrate (Negative) Urine Bilirubin (Negative) Urine Urobilinogen (Negative) Ur Leukocyte Esterase (Negative) Urine Glucose (Negative) Salicylates (<30) mg/dL Urine Opiates Screen None detected (None Detect) Acetaminophen mcg/mL Ur Barbiturates Screen None detected (None Detect) Ur Phencyclidine Scrn None detected (None Detect) Ur Amphetamines Screen None detected (None Detect) U Benzodiazepines Scrn None detected (None Detect) Urine Cocaine Screen None detected (None Detect) U Cannabinoids Screen None detected (None Detect) Serum Alcohol (<10) mg/dL Result Diagrams: 03/19/18 14:49 03/19/18 14:49 Lab Statement: Any lab studies that have been ordered have been reviewed, and results considered in the medical decision making process. Complex Multi-Symp Course/Dx Course Of Treatment: Pt. presenting for ongoing paranoia of bugs crawling on her skin. She has numerous self inflicted wounds to her body from scratching without signs of infection. Pt. overall is mentating appropriately and is fully oriented. WIll obtain MHE. Basic labs ordered. Pt. does have two specimens with her she states her insects, will send to lab for evaluation. Please see MHE notes for further information. Labs are unremarkable other than minimal elevation in liver function. Therapist discussed case with psychiatrist and they feel pt. is safe for discharge home and do not see a reason for admission today. Pt. sleeping comfortably in ED. WIll dc home for close f.u with PCP and her therapist. TO return to ER if sxs change or worsen. - Diagnoses Provider Diagnoses: Paranoia Discharge - Sign-Out/Discharge Documenting (check all that apply): Patient Departure - Discharge Plan Condition: Good Disposition: HOME Referrals: [facility] [Outside] (Please follow up with your Dr Dobbins for medication review) Lissette Pettit MD [Primary Care Provider] - Additional Instructions: Schedule a close follow up appointment with your PCP, therapist and metal can inspector Avoid scratching skin Continue home medications Return to ER if symptoms change or worsen - Billing Disposition and Condition Condition: GOOD Disposition: Home
[2018-03-19 18:06] VITALS: BP 123/88
== END 2018-03-19 18:05 | disposition home or self-care (01) ==
LOC: ED 13:57
DX: F22 Delusional disorders (principal); K21.9 Gastro-esophageal reflux disease without esophagitis; F41.9 Anxiety disorder, unspecified; F32.9 Major depressive disorder, single episode, unspecified
CPT/HCPCS: 36415; 80053; 80307; 80320; 80329; 81003; 84443; 85025; 99284; G0480

== ENCOUNTER 2018-03-24 19:06 | Emergency (ER) | payer MEDICARE ==
[2018-03-24 19:23] VITALS: BP 133/87
--- NOTE | 2018-03-24 19:40 | UC ---
Head Injury HPI - HPI Summary HPI Summary: Pt hit top of head after going from kneeling [place] standing on a counter at the post office. denies loc but does feel 'off' and sensitive to light. Slightly dizzy as well. - History Of Current Complaint Chief Complaint: UCHeadInjury Stated Complaint: HEAD INJURY Time Seen by Provider: 03/24/18 19:08 Hx Obtained From: Patient ?: No Onset/Duration: Sudden Onset Pain Intensity: 4 Character: Dull Aggravating Factor(s): Nothing Alleviating Factor(s): Nothing Associated Signs And Symptoms: Positive: Neck Pain. Negative: LOC (Time In Secs./Mins/Hrs), LOC Duration Unknown, Confusion, Memory Loss, Seizure, Nausea, Vomiting - Allergies/Home Medications Allergies/Adverse Reactions: Allergies Allergy/AdvReac Type Severity Reaction Status Date / Time No Known Allergies Allergy Verified 03/24/18 19:23 Home Medications: Home Medications Cyclobenzaprine TAB* [Flexeril 10 MG TAB*] 10 mg PO TID PRN 03/24/18 [History Confirmed 03/24/18] hydrOXYzine HCL TAB* [Atarax 10 MG TAB*] 10 mg PO TID PRN 03/24/18 [History Confirmed 03/24/18] PMH/Surg Hx/FS Hx/Imm Hx Psychological History: Bipolar Disorder - Surgical History Surgical History: Yes Surgery Procedure, Year, and Place: PLASTIC SURGERY FACE, surgery for fractured skull. mass removed from breast - Family History Known Family History: Negative: Cardiac Disease, Hypertension, Diabetes - Social History Alcohol Use: None Alcohol Amount: hx etoh abuse, 2 years sobriety Substance Use Type: None Smoking Status (MU): Never Smoked Tobacco Type: Cigars Amount Used/How Often: 1PPD 10 YEARS Length of Time of Smoking/Using Tobacco: 10 YEARS Have You Smoked in the Last Year: No When Did the Patient Quit Smoking/Using Tobacco: 30 years ago - Immunization History Most Recent Influenza Vaccination: NEVER HAD ONE Most Recent Pneumonia Vaccination: NEVER HAD ONE Review of Systems All Other Systems Reviewed And Are Negative: Yes Constitutional: Positive: Negative Respiratory: Positive: Negative Cardiovascular: Positive: Negative Gastrointestinal: Negative: Vomiting, Nausea Motor: Negative: Weakness Musculoskeletal: Positive: Other: - neck pain Neurological: Positive: Other - dizzy. Negative: Weakness, Numbness Psychological: Negative: Anxious Physical Exam Triage Information Reviewed: Yes Appearance: Well-Appearing Vital Signs: Initial Vital Signs Temp 97.9 F 03/24/18 19:15 Pulse 63 03/24/18 19:15 Resp 20 03/24/18 19:15 BP 133/87 03/24/18 19:15 Pulse Ox 100 03/24/18 19:15 Vital Signs Reviewed: Yes Eyes: Positive: Other: - PERRLA Neck: Positive: Supple, Nontender, Other: - bACK of neck nontender, FROM. Respiratory Exam: Normal Cardiovascular Exam: Normal Musculoskeletal: Positive: Strength Intact - throughout, Other: - head is nontender at site of injury, no mass or swelling. Neurological Exam: Other - normal speech, good director asset in both hands, able to get on exam table w/out issues. Neurological: Positive: Alert, Muscle Tone Normal. Negative: Lethargic Psychological: Positive: Age Appropriate Behavior Skin Exam: Normal Head Injury Course/Dx - Course Course Of Treatment: head injury on top of head after hitting it on a counter going from kneeled position to standing. No LOC or other neuro deficits but did have neck pain. Low risk for any cerebral issue and CT unremarkable/. Exam unremarkable but she does c/o 'not feeling right'. suspect very mild concussion. advised to go to ED should she develop any new symptoms. - Differential Dx/Diagnosis Differential Diagnosis/HQI/PQRI: Cerebral Contusion, Cervical Sprain, Contusion Provider Diagnosis: Head injury Discharge - Sign-Out/Discharge Documenting (check all that apply): Patient Departure All imaging exams completed and their final reports reviewed: Yes - Discharge Plan Condition: Good Disposition: HOME Patient Education Materials: Concussion (ED) Referrals: Lissette Pettit MD [Primary Care Provider] - 7 Days Additional Instructions: Please follow up with your pcp in the next week to re-evaluate your symptoms. - Billing Disposition and Condition Condition: GOOD Disposition: Home
== END 2018-03-24 20:28 | disposition home or self-care (01) ==
LOC: UCEAST 19:06
DX: S09.90XA Unspecified injury of head, initial encounter (principal); W22.09XA Striking against other stationary object, initial encounter; Y92.242 Post office as the place of occurrence of the external cause; Z87.891 Personal history of nicotine dependence
CPT/HCPCS: 70450; 99211; G0463

== ENCOUNTER 2018-10-18 13:59 | Emergency (ER) | payer MEDICARE, MEDICAID ==
[2018-10-18 16:32] LABS: ABS Basophils 0.1 10^3/ul (0-0.2); ABS Lymphocytes 1.6 10^3/ul (1.0-4.8); ABS Monocytes 0.8 10^3/ul (0-0.8); Eosinophil % 0.2 %; Hematocrit 45 % (35-47); Hemoglobin 15.1 g/dL (12.0-16.0); Lymphocyte % 15.3 %; Mean Corpuscular HGB Conc 34 g/dL (31-36); Mean Corpuscular Hemoglobin 30 pg (27-31); Mean Corpuscular Volume 88 fL (80-97); Mean Platelet Volume 7.1 fL (7.4-10.4); Nucleated Red Blood Cells % 0.1; Platelet Count 349 10^3/uL (150-450); Red Blood Count 5.05 10^6 /uL (3.70-4.87); Red Cell Distribution Width 14 % (10-15); White Blood Count 10.4 10^3/uL (3.5-10.8)
[2018-10-18 16:52] LABS: ALT 36 U/L (7-52); AST 39 U/L (13-39); Albumin 4.4 g/dL (3.2-5.2); Albumin/Globulin Ratio 1.4 (1-3); Alkaline Phosphatase 129 U/L (34-104); Anion Gap 13 mmol/L (2-11); BUN/Creatinine Ratio 19.5 (8-20); Blood Urea Nitrogen 15 mg/dL (6-24); C Reactive Protein < 1.00 mg/L (<8.01); CO2 Carbon Dioxide 23 mmol/L (22-32); Calcium 9.8 mg/dL (8.6-10.3); Chloride 99 mmol/L (101-111); EGFR African American 91.6 (>60); EGFR Non-African American 75.7 (>60); Globulin 3.1 g/dL (2-4); Glucose 113 mg/dL (70-100); Potassium 3.8 mmol/L (3.5-5.0); Sodium 135 mmol/L (135-145); Total Protein 7.5 g/dL (6.4-8.9)
--- NOTE | 2018-10-18 16:58 | ED ---
GI/ HPI - HPI Summary HPI Summary: This patient is a 63 year old F [facility] accompanied by acquaintance with a chief complaint of diarrhea for the past 3 days. Pt reports watery diarrhea approximately every 30 minutes,that is slowly improving. She is also reporting cramping abdominal pain. No recent antibiotics, Pt denies dysuria, and vomiting. Subjective fevers and chills. She has not been around anyone sick. Per triage, The patient rates the pain 9/10 in severity. - History of Current Complaint Chief Complaint: EDNauseaVomitDiarrh Time Seen by Provider: 10/18/18 16:11 Stated Complaint: DEHYDRATION PER PT Hx Obtained From: Patient Onset/Duration: Started Days Ago, Still Present Timing: Intermittent - every 30 minutes, Lasting Days Severity: Severe Current Severity: Severe Pain Intensity: 9 Location of Pain: Diffuse Associated Signs and Symptoms: Positive: Diarrhea, Abdominal Pain. Negative: Vomiting, Dysuria - Additional Pertinent History Primary Care Physician: MIKE - Allergy/Home Medications Allergies/Adverse Reactions: Allergies Allergy/AdvReac Type Severity Reaction Status Date / Time No Known Allergies Allergy Verified 10/18/18 14:04 Home Medications: Home Medications Naltrexone TAB* 50 mg PO DAILY PRN 10/18/18 [History Confirmed 10/18/18] PMH/Surg Hx/FS Hx/Imm Hx Endocrine/Hematology History: Reports: Other Endocrine/Hematological Disorders - slight increased LFTS Cardiovascular History: Reports: Hx Angina - NONE SINCE 2013, Hx Valvular Heart Disease - mitral valve prolapse Respiratory History: Reports: Hx Chronic Obstructive Pulmonary Disease (COPD) GI History: Reports: Hx Gastroesophageal Reflux Disease - ON DAILY MEDS, Other GI Disorders - swallowing difficulties Musculoskeletal History: Reports: Hx Back Problems, Hx Fibromyalgia, Hx Scoliosis, Hx Tendonitis - ANKLES, MINIMAL PROBLEMS SINCE STOPPED EXERCISING, Other Musculoskeletal History - neuropathy in feet Comment Only: Hx Arthritis - FEET & SPINE Sensory History: Reports: Hx Contacts or Glasses - READING Denies: Hx Deafness, Hx Hearing Aid Opthamlomology History: Reports: Hx Contacts or Glasses - READING Neurological History: Reports: Other Neuro Impairments/Disorders - dizziness, head injury- PAIN CLINIC PT Psychiatric History: Reports: Hx Anxiety - ON MEDS, Hx Depression - ON MEDS, Hx Suicide Attempt, Hx Substance Abuse - Battling alcoholism for over 30 years Denies: Hx Eating Disorder, Hx of Violent Episodes Against Others - Surgical History Surgery Procedure, Year, and Place: PLASTIC SURGERY FACE, surgery for fractured skull. mass removed from breast Hx Anesthesia Reactions: No Infectious Disease History: No Infectious Disease History: Denies: Traveled Outside the [place] in Last 30 Days - Family History Known Family History: Positive: Diabetes Negative: Cardiac Disease, Hypertension - Social History Alcohol Use: None Alcohol Amount: hx etoh abuse, 2 years sobriety Hx Substance Use: No Substance Use Type: Reports: None Hx Tobacco Use: Yes Smoking Status (MU): Never Smoked Tobacco Type: Cigars Amount Used/How Often: 1PPD 10 YEARS Length of Time of Smoking/Using Tobacco: 10 YEARS Have You Smoked in the Last Year: No Review of Systems Positive: Abdominal Pain, Diarrhea. Negative: Vomiting Negative: dysuria All Other Systems Reviewed And Are Negative: Yes Physical Exam - Summary Physical Exam Summary: Constitutional: Well-developed, Well-nourished, Alert. (-) Distressed Skin: Warm, Dry HENT: Normocephalic; Atraumatic. MM dry Eyes: Conjunctiva normal Neck: Musculoskeletal ROM normal neck. (-) JVD, (-) Stridor, (-) Tracheal deviation Cardio: Rhythm regular, rate normal, Heart sounds normal; Intact distal pulses; Radial pulses are 2+ and symmetric. (-) Murmur Pulmonary/Chest wall: Effort normal. (-) Respiratory distress, (-) Wheezes, (-) Rales Abd: Soft, (-) tenderness, (-) Distension, (-) Guarding, (-) Rebound Musculoskeletal: (-) Edema Lymph: (-) Cervical adenopathy Neuro: Alert, Oriented x3 Psych: Mood and affect Normal Triage Information Reviewed: Yes Vital Signs On Initial Exam: Initial Vitals Temp Pulse Resp BP Pulse Ox 97.1 F 83 18 149/92 99 10/18/18 14:01 10/18/18 14:01 10/18/18 14:01 10/18/18 14:01 10/18/18 14:01 Vital Signs Reviewed: Yes Diagnostics - Vital Signs Vital Signs Temp Pulse Resp BP Pulse Ox 10/18/18 15:45 98.3 F 60 16 132/61 98 10/18/18 14:01 97.1 F 83 18 149/92 99 - Laboratory Lab Results: Lab Results 07/09/19 Range/Units 16:15 WBC 10.4 (3.5-10.8) 10^3/uL RBC 5.05 H (3.70-4.87) 10^6 /uL Hgb 15.1 (12.0-16.0) g/dL Hct 45 (35-47) % MCV 88 (80-97) fL MCH 30 (27-31) pg MCHC 34 (31-36) g/dL RDW 14 (10-15) % Plt Count 349 (150-450) 10^3/uL MPV 7.1 L (7.4-10.4) fL Neut % (Auto) 76.5 % Lymph % (Auto) 15.3 % [place] % (Auto) 7.5 % Eos % (Auto) 0.2 % Baso % (Auto) 0.5 % Absolute Neuts (auto) 8.0 H (1.5-7.7) 10^3/ul Absolute Lymphs (auto) 1.6 (1.0-4.8) 10^3/ul Absolute Monos (auto) 0.8 (0-0.8) 10^3/ul Absolute Eos (auto) 0.0 (0-0.6) 10^3/ul Absolute Basos (auto) 0.1 (0-0.2) 10^3/ul Absolute Nucleated RBC 0.0 10^3/ul Nucleated RBC % 0.1 Result Diagrams: 10/18/18 16:15 10/18/18 16:15 Lab Statement: Any lab studies that have been ordered have been reviewed, and results considered in the medical decision making process. GIGU Course/Dx - Course Course Of Treatment: Pt is a 63 year old F coming in after 3 days of abdominal cramping and diarrhea, that is improving. Patients vital signs stable, no acute distress, abdomen is soft. She is afebrile with no white count, low suspicion for serious intrabadominal process, will give 1 L of fluids and likely discharge. Low suspicion Cdiff give no risk factors. abd pain/diarrhea likely 2/2 viral cause. Other considerations include: UTI/pyelo- no dysuria, no hematuria. Appendicitis - no RLQ tenderness, no white count or fevers, low suspicion. Gall bladder pathology - no RUQ TTP, no history of gallstones, LFT and bili wnl, low suspicion. PUD - no hx of PUD, H pylori, or NSAID use low suspicion. GERD - no burning epigastric pain, no nighttime cough, no history of GERD in past. Patient felt better after one liter, did not have further episodes of diarrhea. No abdominal pain on re eval and well appearing. discharge to home - Diagnoses Provider Diagnoses: Diarrhea, Dehydration Discharge - Sign-Out/Discharge Documenting (check all that apply): Patient Departure - Discharge Patient Received Moderate/Deep Sedation with Procedure: No - Discharge Plan Condition: Stable Disposition: HOME Patient Education Materials: Dehydration (ED), Acute Diarrhea (ED) Referrals: Lissette Pettit MD [Primary Care Provider] - 3 Days Additional Instructions: Follow up with primary care provider within 3 days. PLEASE RETURN TO THE ED TO IMMEDIATELY FOR WORSENING OR CONCERNING SYMPTOMS. - Billing Disposition and Condition Condition: STABLE Disposition: Home - Attestation Statements Document Initiated by Mary Annibe: Yes Documenting Scribe: Lashell Hwang Provider For Whom Elizabeth is Documenting (Include Credential): Dr. Barbara Pelayo MD Scribe Attestation: Lashell Ochoa, scribed for Dr. Barbara Pelayo MD on 10/18/18 at 2143. Scribe Documentation Reviewed: Yes Provider Attestation: The documentation as recorded by the Lashell olson accurately reflects the service I personally performed and the decisions made by , Dr. Barbara Pelayo MD Status of Scribe Document: Viewed
[2018-10-18] MEDS ORDERED: Lactated Ringers 1000 ML Bag* 1,000 ML IV ONE (17:00)
[2018-10-18] MEDS ORDERED: NS 0.9% 1000 ML** 1,000 ML IV ONE (17:38)
[2018-10-18 18:55] VITALS: BP 122/62
== END 2018-10-18 18:55 | disposition home or self-care (01) ==
LOC: ED 13:59
DX: R19.7 Diarrhea, unspecified (principal); E86.0 Dehydration; J44.9 Chronic obstructive pulmonary disease, unspecified; Z87.891 Personal history of nicotine dependence
CPT/HCPCS: 36415; 80053; 83605; 83690; 85025; 86140; 96360; 96361; 99283

== ENCOUNTER 2023-08-31 14:28 | Inpatient (IN) ==
[2023-08-31] MEDS ORDERED: Midazolam 2 mg/2 ml VIAL 1 mg/ml 2 ml VIAL (2 mg) ONE (14:53)
[2023-08-31] MEDS: Midazolam 2 mg/2 ml VIAL 1 mg/ml 2 ml VIAL (2 mg) IV SLOW PU ONE (14:55)
[2023-08-31 15:10] LABS: ABS Basophils 0.1 10^3/uL (0.0-0.1); ABS Eosinophils 0.1 10^3/uL (0.0-0.5); ABS Lymphocytes 3.1 10^3/uL (1.0-4.8); ABS Monocytes 0.8 10^3/uL (0.0-0.9); ABS Neutrophils 4.4 10^3/uL (1.5-7.6); ABS Nucleated RBC 0.01 10^3/ul; Eosinophil % 1.4 %; Hematocrit 39.3 % (35-45); Hemoglobin 13.3 g/dL (11.5-14.3); Lymphocyte % 36.4 %; Mean Corpuscular Hemoglobin 30.6 pg (27-33); Mean Corpuscular Hgb Conc 33.7 g/dL (31-36); Mean Corpuscular Volume 90.6 fL (80-97); Mean Platelet Volume 7.1 fL (7.5-11.2); Nucleated Red Blood Cells % 0.1 %/100WBC (0.0-0.8); Platelet Count 324 10^3/uL (150-450); Red Blood Count 4.34 10^6/uL (3.63-4.92); Red Cell Distribution Width 13.2 % (12-17); White Blood Count 8.5 10^3/uL (3.8-11.8)
[2023-08-31 15:12] LABS: Urine Appearance Clear; Urine Bilirubin Negative (Negative); Urine Blood Negative (Negative); Urine Color Colorless; Urine Glucose Negative (Negative); Urine Ketones Negative (Negative); Urine Nitrite Negative (Negative); Urine Protein Negative (Negative); Urine Specific Gravity 1.004 (1.002-1.030); Urine Urobilinogen Negative (Negative)
[2023-08-31 15:25] LABS: ALT 53 U/L (7-52); AST 45 U/L (13-39); Acetaminophen < 15 mcg/mL; Albumin 4.2 g/dL (3.2-5.2); Albumin/Globulin Ratio 1.7 (1-3); Alcohol, S 166 mg/dL (<13); Alkaline Phosphatase 160 U/L (35-149); Anion Gap 8 mmol/L (2-16); Blood Urea Nitrogen 14 mg/dL (6-24); CO2 Carbon Dioxide 24 mmol/L (22-32); Calcium 9.3 mg/dL (8.6-10.3); Chloride 101 mmol/L (101-111); Creatinine, Serum 0.96 mg/dL (0.51-0.95); Globulin 2.5 g/dL (2-4); Glucose 118 mg/dL (70-100); Potassium 3.7 mmol/L (3.5-5.0); Salicylate < 2.50 mg/dL (<30); Sodium 133 mmol/L (135-145); Total Bilirubin 0.5 mg/dL (0.2-1.0); Total Protein 6.7 g/dL (6.4-8.9); eGFR CKD-EPI 64.4 (>60)
[2023-08-31 15:41] LABS: TSH Ultra Thyroid Stim Horm 0.99 mcIU/mL (0.34-5.60)
[2023-08-31 16:17] LABS: Urine Benzodiazepine Screen Presumptive Positive (None Detect); Urine Cannabinoids Screen None Detected (None Detect); Urine Opiates Screen None Detected (None Detect)
[2023-08-31 18:15] LABS: Venous Bicarbonate HCO3 22.4 mmol/L (24-28)
[2023-08-31] MEDS ORDERED: Acetaminophen IV 1 GM/100ML 1,000 MG/100 ML BAG IV PRN (18:20)
[2023-08-31] MEDS: diazePAM INJ CARPUJECT 5 MG/ML SYRINGE IV PRN (18:38)
[2023-08-31] MEDS: Lactated Ringers 1000 ml BAG 1,000 ML IV SCH (18:55)
[2023-08-31] MEDS: Mometasone/Formoter 200/5 MDI INH SCH (19:53)
[2023-08-31] MEDS: Thiamine 100 MG/ML 2 ml VIAL 100 MG in NS 0.9% 50 ML 50 ML IV SCH (20:25)
[2023-08-31 20:35] LABS: Urine Buprenorphine Screen None Detected (None Detect); Urine Fentanyl Screen None Detected (None Detect); Urine Hydrocodone Screen None Detected (None Detect)
[2023-08-31] MEDS: Enoxaparin 40 MG/0.4 ML SYR SUBCUT SCH (22:19)
[2023-08-31] MEDS: Folic Acid IV 1 MG in NS 0.9% 50 ML 50 ML IV ONE (22:20)
[2023-09-01] MEDS: Ondansetron 4 mg VIAL 2 MG/ML 2 ml VIAL IV PRN (02:28)
[2023-09-01 06:47] LABS: ABS Eosinophils 0.1 10^3/uL (0.0-0.5); ABS Lymphocytes 1.9 10^3/uL (1.0-4.8); ABS Neutrophils 3.7 10^3/uL (1.5-7.6); ABS Nucleated RBC 0.01 10^3/ul; Eosinophil % 1.3 %; Hematocrit 35.3 % (35-45); Hemoglobin 12.1 g/dL (11.5-14.3); Lymphocyte % 28.5 %; Mean Corpuscular Hemoglobin 30.9 pg (27-33); Mean Corpuscular Hgb Conc 34.1 g/dL (31-36); Mean Corpuscular Volume 90.7 fL (80-97); Mean Platelet Volume 7.3 fL (7.5-11.2); Nucleated Red Blood Cells % 0.1 %/100WBC (0.0-0.8); Platelet Count 275 10^3/uL (150-450); Red Cell Distribution Width 13.2 % (12-17); White Blood Count 6.7 10^3/uL (3.8-11.8)
[2023-09-01 07:03] LABS: Albumin 3.4 g/dL (3.2-5.2); Albumin/Globulin Ratio 1.6 (1-3); Calcium 8.6 mg/dL (8.6-10.3); Creatinine, Serum 1.1 mg/dL (0.51-0.95); Globulin 2.1 g/dL (2-4); Potassium 3.5 mmol/L (3.5-5.0); Total Bilirubin 0.4 mg/dL (0.2-1.0); Total Protein 5.5 g/dL (6.4-8.9); eGFR CKD-EPI 54.7 (>60)
[2023-09-02 06:51] LABS: Calcium 8.7 mg/dL (8.6-10.3); Creatinine, Serum 1.3 mg/dL (0.51-0.95); Potassium 3.6 mmol/L (3.5-5.0); eGFR CKD-EPI 44.8 (>60)
[2023-09-02] MEDS: Calcium Carb (TUMS) 500 mg CHEW TAB PO PRN (08:57)
[2023-09-02] MEDS: Lactated Ringers 1000 ml BAG 1,000 ML IV SCH (10:27)
[2023-09-02] MEDS: Metoclopramide 5 MG/ML VIAL (10 mg) IV PRN (13:28)
[2023-09-02 19:25] LABS: ABS Lymphocytes 0.8 10^3/uL (1.0-4.8); ABS Monocytes 0.9 10^3/uL (0.0-0.9); ABS Neutrophils 7.8 10^3/uL (1.5-7.6); ABS Nucleated RBC 0.01 10^3/ul; Eosinophil % 0.3 %; Hematocrit 34.8 % (35-45); Lymphocyte % 8.6 %; Mean Corpuscular Hemoglobin 31.1 pg (27-33); Mean Corpuscular Hgb Conc 34.4 g/dL (31-36); Mean Corpuscular Volume 90.3 fL (80-97); Mean Platelet Volume 7.5 fL (7.5-11.2); Nucleated Red Blood Cells % 0.1 %/100WBC (0.0-0.8); Platelet Count 279 10^3/uL (150-450); Red Blood Count 3.86 10^6/uL (3.63-4.92); Red Cell Distribution Width 13.3 % (12-17); White Blood Count 9.6 10^3/uL (3.8-11.8)
[2023-09-02] MEDS: Pantoprazole VIAL 40 MG VIAL IV SCH (19:31)
[2023-09-02 20:01] LABS: Calcium 8.9 mg/dL (8.6-10.3); Creatinine, Serum 1.12 mg/dL (0.51-0.95); Potassium 3.6 mmol/L (3.5-5.0); eGFR CKD-EPI 53.6 (>60)
[2023-09-03] MEDS: diazePAM INJ CARPUJECT 5 MG/ML SYRINGE IV PRN (02:20)
[2023-09-03 05:49] LABS: ABS Eosinophils 0.1 10^3/uL (0.0-0.5); ABS Lymphocytes 1.5 10^3/uL (1.0-4.8); ABS Monocytes 1.1 10^3/uL (0.0-0.9); ABS Neutrophils 6.5 10^3/uL (1.5-7.6); Eosinophil % 0.6 %; Hematocrit 32.2 % (35-45); Hemoglobin 11.3 g/dL (11.5-14.3); Lymphocyte % 16.2 %; Mean Corpuscular Hemoglobin 31.6 pg (27-33); Mean Corpuscular Hgb Conc 35.1 g/dL (31-36); Mean Corpuscular Volume 90.3 fL (80-97); Mean Platelet Volume 7.3 fL (7.5-11.2); Platelet Count 256 10^3/uL (150-450); Red Blood Count 3.56 10^6/uL (3.63-4.92); Red Cell Distribution Width 13.7 % (12-17); White Blood Count 9.2 10^3/uL (3.8-11.8)
[2023-09-03 06:15] LABS: Albumin 3.3 g/dL (3.2-5.2); Albumin/Globulin Ratio 1.6 (1-3); Calcium 8.5 mg/dL (8.6-10.3); Creatinine, Serum 1.01 mg/dL (0.51-0.95); Globulin 2.1 g/dL (2-4); Magnesium 1.6 mg/dL (1.9-2.7); Potassium 3.7 mmol/L (3.5-5.0); Total Bilirubin 0.4 mg/dL (0.2-1.0); Total Protein 5.4 g/dL (6.4-8.9); eGFR CKD-EPI 60.6 (>60)
[2023-09-03] MEDS: Magnesium Sulfate 2 gm BAG 2 GM/50 ML BAG IVPB ONE (10:02)
[2023-09-03] MEDS: Enoxaparin 40 MG/0.4 ML SYR SUBCUT SCH (10:17)
[2023-09-03] MEDS ORDERED: Naloxone 0.4 mg VIAL 0.4 mg/ml 1 ml VIAL IV PRN (14:33)
[2023-09-03] MEDS ORDERED: Ondansetron 4 mg VIAL 2 MG/ML 2 ml VIAL IV PRN (14:33)
[2023-09-03] MEDS ORDERED: Propofol 10 MG/ML 20 ML BTL ONE ×2 (14:39→14:43)
[2023-09-03] MEDS ORDERED: Lidocaine 2% PF 5 ML VIAL ONE (14:39)
[2023-09-03] MEDS ORDERED: NS 0.45% 1000 ml BAG 1,000 ML IV SCH (15:00)
[2023-09-03] MEDS ORDERED: fentaNYL 100 mcg/2 ml 50 MCG/ML VIAL ONE (15:37)
[2023-09-03] MEDS: fentaNYL 100 mcg/2 ml 50 MCG/ML VIAL IV PRN (15:39)
[2023-09-03] MEDS: Scopolamine 1 mg/72hr PATCH TRANSDERM ONE (16:28)
[2023-09-03] MEDS: Acetaminophen IV 1 GM/100ML 1,000 MG/100 ML BAG IV ONE (16:28)
[2023-09-03] MEDS: Buffered Lidocaine 1% SYRIN 1 ml INTRADERM ONE (16:41)
[2023-09-03] MEDS: Lactated Ringers 1000 ml BAG 1,000 ML IV SCH (17:17)
[2023-09-04] MEDS: Multivitamins/Minerals TAB PO SCH (09:03)
[2023-09-04 12:16] LABS: ABS Basophils 0.1 10^3/uL (0.0-0.1); ABS Eosinophils 0.2 10^3/uL (0.0-0.5); ABS Lymphocytes 1.4 10^3/uL (1.0-4.8); ABS Monocytes 0.7 10^3/uL (0.0-0.9); Eosinophil % 2.4 %; Hematocrit 31.6 % (35-45); Lymphocyte % 19.2 %; Mean Corpuscular Hemoglobin 31.4 pg (27-33); Mean Corpuscular Hgb Conc 34.9 g/dL (31-36); Mean Corpuscular Volume 89.9 fL (80-97); Mean Platelet Volume 7.3 fL (7.5-11.2); Platelet Count 262 10^3/uL (150-450); Red Blood Count 3.51 10^6/uL (3.63-4.92); Red Cell Distribution Width 13.7 % (12-17); White Blood Count 7.3 10^3/uL (3.8-11.8)
[2023-09-04 12:28] LABS: Calcium 8.6 mg/dL (8.6-10.3); Creatinine, Serum 0.9 mg/dL (0.51-0.95); Magnesium 1.9 mg/dL (1.9-2.7); Potassium 3.6 mmol/L (3.5-5.0); eGFR CKD-EPI 69.6 (>60)
[2023-09-05] MEDS: Dextran 70/Hypromellose Tears Eye Drops 15 ml BTL (for Artificials Tears) BOTH EYES PRN (15:46)
[2023-09-08 15:44] LABS: Hematocrit 37.7 % (35-45)
[2023-09-13] MEDS: Albuterol HFA INHALER 8 gm MDI INH PRN (21:36)
[2023-09-15 10:17] VITALS: BP 133/76
== END 2023-09-16 09:00 | DRG 918 ==
LOC: ED 14:28 → EDHOLD 14:28 → MEDTELE 17:41 → SUATTDRO 09-02 14:00 → BSU 09-04 15:30
PROVIDERS: ADMIT Internal Medicine; ATTEND Psychiatry & Neurology Psychiatry
PROC: O.GIEGD (2023-09-03 11:05)

== ENCOUNTER 2024-02-08 19:11 | Inpatient (IN) ==
[2024-02-08] MEDS: Lactated Ringers 1000 ml BAG 1,000 ML IV ONE (19:49)
[2024-02-08 20:10] LABS: ABS Basophils 0.1 10^3/uL (0.0-0.1); ABS Eosinophils 0.1 10^3/uL (0.0-0.5); ABS Lymphocytes 2.1 10^3/uL (1.0-4.8); ABS Monocytes 0.5 10^3/uL (0.0-0.9); ABS Neutrophils 2.8 10^3/uL (1.5-7.6); ABS Nucleated RBC 0.01 10^3/ul; Eosinophil % 2.4 %; Hematocrit 38.5 % (35-45); Hemoglobin 13.1 g/dL (11.5-14.3); Lymphocyte % 37.6 %; Mean Corpuscular Hemoglobin 30.7 pg (27-33); Mean Corpuscular Hgb Conc 34.1 g/dL (31-36); Mean Corpuscular Volume 89.9 fL (80-97); Mean Platelet Volume 7.2 fL (7.5-11.2); Nucleated Red Blood Cells % 0.2 %/100WBC (0.0-0.8); Platelet Count 324 10^3/uL (150-450); Red Blood Count 4.28 10^6/uL (3.63-4.92); Red Cell Distribution Width 14.5 % (12-17); White Blood Count 5.6 10^3/uL (3.8-11.8)
[2024-02-08 20:43] LABS: ALT 127 U/L (7-52); AST 124 U/L (13-39); Acetaminophen < 15 mcg/mL; Albumin/Globulin Ratio 1.4 (1-3); Alcohol, S 163 mg/dL (<13); Alkaline Phosphatase 355 U/L (35-149); Anion Gap 12 mmol/L (2-16); Blood Urea Nitrogen 13 mg/dL (6-24); CO2 Carbon Dioxide 24 mmol/L (22-32); Calcium 9.3 mg/dL (8.6-10.3); Chloride 101 mmol/L (101-111); Creatinine, Serum 0.77 mg/dL (0.51-0.95); Globulin 2.9 g/dL (2-4); Glucose 121 mg/dL (70-100); Potassium 4.2 mmol/L (3.5-5.0); Salicylate < 2.50 mg/dL (<30); Sodium 137 mmol/L (135-145); Total Bilirubin 0.6 mg/dL (0.2-1.0); Total Protein 6.9 g/dL (6.4-8.9)
[2024-02-08 20:57] LABS: TSH Ultra Thyroid Stim Horm 1.01 mcIU/mL (0.34-5.60)
[2024-02-08] MEDS ORDERED: Lorazepam PYXIS KEY PRN (22:08)
[2024-02-08] MEDS: LORazepam 2 mg VIAL 1 ml IV PUSH ONE (22:14)
[2024-02-08] MEDS: Multivitamins/Minerals TAB PO SCH (22:23)
[2024-02-08 22:27] LABS: Urine Appearance Clear; Urine Bilirubin Negative (Negative); Urine Blood Negative (Negative); Urine Color Colorless; Urine Glucose Negative (Negative); Urine Ketones Negative (Negative); Urine Nitrite Negative (Negative); Urine Protein Negative (Negative); Urine Specific Gravity 1.005 (1.002-1.030); Urine Urobilinogen Negative (Negative)
[2024-02-08] MEDS: Thiamine 100 MG/ML 2 ml VIAL (200 mg) IM ONE (22:27)
[2024-02-08 22:33] LABS: Urine Bacteria Absent /HPF (Absent); Urine Red Blood Cell Trace(0-2/hpf) /HPF (0-Trace); Urine Squamous Epithelial Cell Present /HPF (Absent); Urine White Blood Cell Trace(0-5/hpf) /HPF (0-Trace)
[2024-02-08 22:46] LABS: Urine Benzodiazepine Screen None Detected (None Detect); Urine Cannabinoids Screen None Detected (None Detect); Urine Opiates Screen None Detected (None Detect)
[2024-02-09 01:40] LABS: Urine Benzodiazepine Screen None Detected (None Detect); Urine Buprenorphine Screen None Detected (None Detect); Urine Cannabinoids Screen None Detected (None Detect); Urine Fentanyl Screen None Detected (None Detect); Urine Hydrocodone Screen None Detected (None Detect); Urine Opiates Screen None Detected (None Detect)
[2024-02-09] MEDS: Iohexol 300 (CONTRAST) 10 ML SDV IV ONE (03:32)
[2024-02-09] MEDS: Ondansetron 4 mg VIAL 2 MG/ML 2 ml VIAL IV ONE (04:05)
[2024-02-09] MEDS ORDERED: Al Hydrox/Mg Hydrox/Simet LIQ 30 ML UDC PO PRN (06:51)
[2024-02-09] MEDS: CMCS: Acamprosate DR 333 mg TAB (NF) PO SCH (21:02)
[2024-02-10] MEDS: Dextran 70/Hypromellose Tears Eye Drops 15 ml BTL (for Artificials Tears) BOTH EYES PRN (13:36)
[2024-02-10] MEDS: Mometasone/Formoter 200/5 MDI INH SCH (20:35)
[2024-02-16] MEDS: buPROPion SR 100 mg TAB.SR PO SCH (13:18)
[2024-02-16 14:11] LABS: Hemoglobin 8.9 g/dL (11.5-14.3); Mean Corpuscular Hemoglobin 32.6 pg (27-33); Mean Corpuscular Hgb Conc 35.4 g/dL (31-36); Mean Platelet Volume 7.4 fL (7.5-11.2); Platelet Count 323 10^3/uL (150-450); Red Blood Count 2.72 10^6/uL (3.63-4.92); Red Cell Distribution Width 14.9 % (12-17); White Blood Count 6.9 10^3/uL (3.8-11.8)
[2024-02-19] MEDS: Benzocaine/Menthol LOZ PO PRN (20:34)
[2024-02-20] MEDS: Mometasone/Formoter 200/5 MDI INH SCH (09:18)
[2024-02-20 14:42] LABS: ABS Basophils 0.1 10^3/uL (0.0-0.1); ABS Lymphocytes 1.5 10^3/uL (1.0-4.8); ABS Monocytes 0.7 10^3/uL (0.0-0.9); ABS Neutrophils 2.4 10^3/uL (1.5-7.6); Hematocrit 24.5 % (35-45); Hemoglobin 8.5 g/dL (11.5-14.3); Mean Corpuscular Hemoglobin 31.9 pg (27-33); Mean Corpuscular Hgb Conc 34.6 g/dL (31-36); Mean Corpuscular Volume 92.2 fL (80-97); Mean Platelet Volume 6.8 fL (7.5-11.2); Platelet Count 425 10^3/uL (150-450); Red Blood Count 2.66 10^6/uL (3.63-4.92); Red Cell Distribution Width 15.2 % (12-17); White Blood Count 4.8 10^3/uL (3.8-11.8)
[2024-02-20] MEDS: Pantoprazole VIAL 40 MG VIAL IV ONE (15:34)
[2024-02-20 15:38] LABS: Folate > 20.00 ng/mL (5.90-24.80)
[2024-02-20 15:39] LABS: Vitamin B12 1236 pg/mL (180-914)
[2024-02-20 15:48] LABS: % Iron Saturation 7 % (15-55); .Transferrin 327 mg/dL (203-362); Iron 33 ug/dL (50-212); Total Iron Binding Capacity 458 mcg/dL (250-450); Unsaturated Iron Binding 425 ug/dL
[2024-02-21 07:52] LABS: ABS Basophils 0.1 10^3/uL (0.0-0.1); ABS Lymphocytes 1.4 10^3/uL (1.0-4.8); ABS Monocytes 0.6 10^3/uL (0.0-0.9); ABS Neutrophils 5.4 10^3/uL (1.5-7.6); Eosinophil % 0.5 %; Hematocrit 23.2 % (35-45); Hemoglobin 8.1 g/dL (11.5-14.3); Lymphocyte % 18.7 %; Mean Corpuscular Hemoglobin 31.9 pg (27-33); Mean Corpuscular Hgb Conc 34.8 g/dL (31-36); Mean Corpuscular Volume 91.5 fL (80-97); Mean Platelet Volume 6.9 fL (7.5-11.2); Platelet Count 426 10^3/uL (150-450); Red Blood Count 2.53 10^6/uL (3.63-4.92); Red Cell Distribution Width 14.8 % (12-17); White Blood Count 7.5 10^3/uL (3.8-11.8)
[2024-02-21] MEDS: Pantoprazole VIAL 40 MG VIAL IV SCH (08:45)
[2024-02-21 09:08] LABS: Calcium 8.9 mg/dL (8.6-10.3); Creatinine, Serum 1.12 mg/dL (0.51-0.95); Potassium 4.4 mmol/L (3.5-5.0); eGFR CKD-EPI 53.6 (>60)
[2024-02-22 08:24] LABS: Hematocrit 24.7 % (35-45); Hemoglobin 8.5 g/dL (11.5-14.3)
[2024-02-24 14:11] LABS: Hematocrit 26.2 % (35-45); Hemoglobin 8.8 g/dL (11.5-14.3); Mean Corpuscular Hgb Conc 33.8 g/dL (31-36); Mean Corpuscular Volume 91.8 fL (80-97); Mean Platelet Volume 6.9 fL (7.5-11.2); Platelet Count 575 10^3/uL (150-450); Red Blood Count 2.85 10^6/uL (3.63-4.92); Red Cell Distribution Width 15.3 % (12-17); White Blood Count 10.6 10^3/uL (3.8-11.8)
[2024-02-28 09:17] VITALS: BP 118/81
== END 2024-02-28 14:50 | disposition home or self-care (01) | DRG 918 ==
LOC: ED 19:11 → EDHOLD 02-09 06:29 → BSU 02-09 10:51
PROVIDERS: ADMIT Psychiatry & Neurology Psychiatry; ATTEND Psychiatry & Neurology Psychiatry